=== PATIENT | male | born 1955 | race Caucasian/White ===

== ENCOUNTER 2016-12-23 08:03 | Inpatient (IN) ==
[2016-12-23] MEDS ORDERED: MORPHINE 2 MG/1 ML SYRINGE IV STA ×3 (08:11→09:01)
[2016-12-23] MEDS ORDERED: ONDANSETRON 4 MG/2 ML VIAL IV STA (08:11)
[2016-12-23] MEDS ORDERED: ASPIRIN 325 MG TABLET PO STA (08:11)
[2016-12-23] MEDS ORDERED: ALUM/MAG/SIMETH/LIDO VISC 1:1 30 ML BOTTLE PO STA (08:11)
[2016-12-23] MEDS ORDERED: NITROGLYCERIN 2% OINT 1 INCH/GM PACK TOP STA (08:11)
[2016-12-23] MEDS ORDERED: ENOXAPARIN 100 MG/ML SYRINGE SUBCUT STA (08:11)
--- NOTE | 2016-12-23 08:14 | EKG Report ---
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
[2016-12-23] MEDS ORDERED: ONDANSETRON 4 MG/2 ML VIAL ONE (08:16)
[2016-12-23] MEDS ORDERED: MORPHINE 2 MG/1 ML SYRINGE ONE ×3 (08:16→09:02)
[2016-12-23] MEDS ORDERED: ALUM/MAG/SIMETH/LIDO VISC 1:1 30 ML BOTTLE PO ONE (08:16)
[2016-12-23] MEDS ORDERED: ENOXAPARIN 80 MG/0.8 ML SYRINGE SUBCUT ONE (08:16)
[2016-12-23] MEDS ORDERED: NITROGLYCERIN 2% OINT 1 INCH/GM PACK TOP ONE (08:16)
--- NOTE | 2016-12-23 08:23 | Emergency Department Note ---
Brandon Frank Gwan, am scribing for, and in the presence of, Jomar Alonzo MD 08:19 . Cheri Frank James D, MD, personally performed the services described in this documentation, ascribed by Joanie Taylor in my presence, and it is both accurate and complete 821 . Arrival - Arrival Chief Complaint: Chest Pain ED Nursing Triage Note: c/o cp started when the pt woke up. onset about 0630. pain is in both arms and center of back. +n/v Mode of Arrival: Stretcher Limitations: No Limitations Source: Patient, Old Records Reviewed, RN Notes Reviewed Time Seen by Provider: 12/23/16 08:08 - History of Present Illness HPI Narrative: Pt is a 61 y/o male, with a hx of VT, and bypass, who presents to the ED with a c/o chest pain with an onset 0630 this morning. Patient describes his pain as sharp and noted that his pain radiates to his back. He then said that this pain is similar to the pain that he has had in the past with previous heart problems. His associated sxs have been diaphoresis and N/V. He confirmed that he is being followed by [facility] Dr. aVldez and that he is complaints with all prescribed medications. He denies any hx of DM. He confirmed that he has a SHx of 1ppd cigarette use. During exam, pt stated that he is still in pain. Pt has a PMHx of HTN, CVA and cardiac catheterization. No other problems/ complaints reported in ED. Onset (ago): hour(s) Consistency: constant Severity: moderate Allergies/Adverse Reactions: Allergies Allergy/AdvReac Type Severity Reaction Status Date / Time Shellfish Allergy Unknown/Unable Verified 12/23/16 08:09 to obtain soybean oil Allergy Unknown/Unable Uncoded 12/23/16 08:09 to obtain Home Medications: Home Medications Medication Instructions Recorded Confirmed Type Amlodipine Besylate/Benazepril 1 each PO DAILY 12/23/16 12/23/16 History [Amlodipine-Benazepril 5-20 mg] Carvedilol [Coreg] 12.5 mg PO BID 12/23/16 12/23/16 History Clopidogrel [Plavix] 75 mg PO DAILY 12/23/16 12/23/16 History Isosorbide Mononitrate [Isosorbide 30 mg PO QAM 12/23/16 12/23/16 History Mononitrate ER] Magnesium Chloride [Slow Mag] 64 mg PO DAILY 12/23/16 12/23/16 History Simvastatin 40 mg PO BEDTIME 12/23/16 12/23/16 History Review of System - Review of System 12 point system: reviewed and no additional remarkable complaints except as stated - Review of System Constitutional: Present: as per HPI, diaphoresis. Absent: fever Head/Ears/Nose/Throat: Absent: earache Respiratory: Absent: cough, wheezing Cardiovascular: Present: as per HPI, chest pain Gastrointestinal: Present: as per HPI, nausea, vomiting Genitourinary male: Absent: urgency, dysuria Musculoskeletal: Present: as per HPI, back pain. Absent: leg pain Skin: Absent: rash, lesions Neurological: Absent: headache, numbness Medical,Surgical,& Family Hx - Medical History Cardio: History of: Hypertension, VT Neurology: History of: Cerebrovascular Accident - Surgical History Cardiac Surgeries: Sugical HX of: Cardiac Catheterization (stent), Cardiac Surgery (bypass) - Social History Smoking Status: Smoker, status unknown Frequency of Alcohol Use: Occasionally Type of Drug Use: None Exam Physical Examination: GENERAL: This is a well-nourished, well-developed white male in no apparent distress. VITAL SIGNS: HEENT: Head is normocephalic and atraumatic. Pupils are equally round and reactive to light. Extraocular movement are intact. Oropharynx is benign with moist mucous membranes. NECK: Neck is soft and supple without tenderness. There are no masses. There is no lymphadenopathy. LUNGS: Lungs are clear to auscultation bilaterally. Chest rises symmetrically. There is no chest wall tenderness. CV: Heart is regular rate and rhythm without murmurs, rubs, or gallops. ABDOMEN: Abdomen is soft, non-tender to palpation. There are no abnormal masses palpated. There is no organomegaly. Bowel sounds are present and active. SKIN: Skin is warm and dry. No rash. EXTREMITIES: Patient has full range of motion without tenderness. There is no pedal edema. NEUROLOGIC: Awake, alert, and oriented x4. Cranial nerves II through XII are grossly intact. There are no motorsensory deficits. PSYCHIATRIC: Normal affect. Normal mood. Vital Signs: Vital Signs Temperature 96.8 F L 12/23/16 08:03 Pulse Rate 53 L 12/23/16 08:03 Respiratory Rate 18 12/23/16 08:10 Blood Pressure 120/79 12/23/16 08:03 O2 Sat by Pulse Oximetry 100 12/23/16 08:03 Course - Consultations Consultation #1: Discussed with cardiology. Patient will be admitted to their service. Patient will be taken to [facility] for left heart cath. Time: 10:40 Results - Labs CBC & BMP: 12/23/16 08:17 12/23/16 08:17 Lab Results: I have reviewed the patients labs Labs: Laboratory Tests 12/23/16 12/23/16 08:17 08:17 WBC 8.2 RBC 4.30 Hgb 14.6 Hct 42.7 Plt Count 208 [place] % (Auto) 13.9 H [place] # (Auto) 1.1 H INR 1.0 PT Patient/Control Mix 10.7 Circ Anticoag PTT 26.4 Laboratory Tests 12/23/16 08:17 Sodium 141 Potassium 4.3 Chloride 108 H Carbon Dioxide 28 BUN 14 Creatinine 1.00 Glucose 125 H Calcium 8.2 L Globulin 3.6 H Albumin/Globulin Ratio 0.9 L Lipase 107.0 - EKG EKG results: interpreted by ERMD - Impressions EKG: Sinus bradycardia with a rate of 55, occasional supraventricular premature complexes, nonspecific ST-T wave changes, normal axis. - Diagnostic Findings Procedure: Chest x-ray: image reviewed by me (Old median sternotomy, no infiltrates, no pleural effusions.), CT - chest: report reviewed by me ( Moderately severe emphysematous changes.) Disposition Clinical Impression: Chest pain, Coronary artery disease, Hyperlipidemia, Tobacco abuse, COPD ( chronic obstructive pulmonary disease), Abnormal EKG Case discussed with: patient Disposition: Still a Patient Condition: Guarded Time of Disposition: 10:40
[2016-12-23 08:27] LABS: Basophils % 0.5 % (0.0-0.8); Eosinophils # 0.3 10*3/uL (0.0-0.87); Eosinophils % 3.7 % (0.00-10.9); Hematocrit 42.7 VOL% (42.0-52.0); Hemoglobin 14.6 GM/DL (14.0-18.0); Immature Granulocytes % 0.2 %; Immature Granulocytes Absolute 0.02 #; Lymphocytes # 2.5 10*3/uL (1.4-4.0); Lymphocytes % 30.6 % (21.2-54.2); Mean Corpuscular HGB Conc 34.2 GM/DL (32-36); Mean Corpuscular Hemoglobin 34 PG (27-34); Mean Corpuscular Volume 99.3 FL (87-102); Mean Platelet Volume 10.3 FL (9.6-12.0); Monocytes # 1.1 10*3/uL (0.11-0.8); Monocytes % 13.9 % (1.7-12.7); Neutrophils # 4.2 10*3/uL (1.4-7.4); Neutrophils % 51.1 % (38.7-73.9); Platelet Count 208 T/CUMM (130-400); White Blood Count 8.2 T/CUMM (4-12)
--- NOTE | 2016-12-23 08:33 | XRay Report ---
XR chest 1V portable Indication: Chest pain. Comparison: Chest x-ray 03/22/2013 Technique: Portable AP chest was performed. Findings: Heart size appears within normal limits. Previous sternotomy is demonstrated. Lungs are clear for degree of inspiration. There may be minimal atelectatic change within the lung bases. Hilar structures are stable when compared to prior. Upper lungs are clear. Bones and soft tissues demonstrate no evidence of acute pathology. Impression: 1. No specific evidence of acute pathology. 12/23/2016 8:29 AM PROCEDURE INTERPRETED AT [facility] DEPARTMENT OF RADIOLOGY Final Report Signed by: Dr. Ralph Hanks
[2016-12-23 08:36] LABS: PT Patient Result 10.7 SECS; Partial Thromboplastin Time 26.4 SECS (0-40)
[2016-12-23 09:09] LABS: Albumin 3.5 G/DL (3.4-5.0); Bilirubin,Total 0.7 MG/DL (0.2-1.0); Calcium 8.2 MG/DL (8.5-10.1); Osmolality,Calculated 282.3 MOS/KG (273-304); Potassium 4.3 MMOL/L (3.5-5.1); Total Protein 7.1 G/DL (6.4-8.3)
[2016-12-23] MEDS ORDERED: HYDROmorphone 2 MG/1 ML VIAL ONE ×2 (09:21→11:20)
[2016-12-23] MEDS ORDERED: HYDROmorphone 2 MG/1 ML VIAL IV STA ×2 (09:24→11:19)
[2016-12-23] MEDS ORDERED: methylPREDNISolone SOD SUC 125 MG/2 ML VIAL ONE (09:58)
[2016-12-23] MEDS ORDERED: diphenhydrAMINE 50 MG/1 ML VIAL ONE (09:58)
[2016-12-23] MEDS ORDERED: methylPREDNISolone SOD SUC 125 MG/2 ML VIAL IV STA (10:03)
[2016-12-23] MEDS ORDERED: diphenhydrAMINE 50 MG/1 ML VIAL IV STA (10:03)
--- NOTE | 2016-12-23 10:29 | CT Report ---
CT chest w con Indication: Chest pain Comparison: None. Technique: CT of the chest was performed following the administration of intravenous contrast. The CT examination was performed using one or more of the following dose reduction techniques: Automatic exposure control, adjustment of the mA and kV according to patient size, or iterative reconstruction techniques. Findings: Prior sternotomy is demonstrated. The heart size is minimally enlarged with four-chamber enlargement suggested. Coronary artery calcifications and/or stents are present. Aorta demonstrates no significant abnormality. Borderline to minimally enlarged right hilar lymph nodes are present measuring up to 10-11 mm in short axis dimension. Borderline left hilar lymph nodes additionally present. AP window lymph nodes measure up to 11 mm in short axis dimension. No axillary adenopathy is present. The esophagus demonstrates no significant abnormality. Severe paraseptal emphysematous changes and centrilobular emphysematous changes are present bilaterally. These appear most prevalent within the upper lobes. Small pulmonary nodule blurred by motion exists within the right upper lobe image #49. This measures approximately 3 mm. Small focus of scarring or atelectasis is suggested along the anterior margin of the right middle lobe image #75. Dependent atelectasis is present within the right lower lobe. Dependent atelectasis is noted within the left lower lobe. Additionally, bilaterally within the lower lobes, prominent dependent venous structures are noted suggesting pulmonary venous congestive changes. No pleural effusions are present. No endobronchial lesions are demonstrated. With exception of sternal wires, bony structures demonstrate no significant abnormalities. Soft tissues and musculature of the chest wall as well as the visualized portion of the upper abdomen demonstrate no acute findings. Punctate calcifications present within the spleen suggest previous granulomatous disease. Impression: 1. Moderately severe bilateral centrilobular and paraseptal emphysematous changes demonstrated as detailed. Pulmonary nodule within the right upper lobe is present as detailed. 2. Dependent pulmonary venous structures appear engorged suggesting component of pulmonary venous congestive change. 3. No evidence of pulmonary artery and bolus. 4. Previous sternotomy and coronary artery calcifications are present as detailed. 5. Borderline to minimally enlarged bilateral hilar lymph nodes are of uncertain clinical significance. Additional borderline mediastinal nodes present as detailed. Differential considerations are broad. 12/23/2016 10:19 AM PROCEDURE INTERPRETED AT [facility] DEPARTMENT OF RADIOLOGY Final Report Signed by: Dr. Ralph Hanks
--- NOTE | 2016-12-23 11:06 | EKG Report ---
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
[2016-12-23] MEDS ORDERED: DIAZEPAM 5 MG TABLET PO ONE (11:18)
[2016-12-23] MEDS ORDERED: diphenhydrAMINE CAP 25 MG CAPSULE PO ONE (11:18)
[2016-12-23] MEDS ORDERED: MAGNESIUM SULF RIDER 2 GM in PREMIX 1 EACH IV PRN ×2 (11:18→13:21)
[2016-12-23] MEDS ORDERED: POTASSIUM CHLORIDE RIDER 10 MEQ in PREMIX 1 EACH IV PRN (11:18)
--- NOTE | 2016-12-23 11:29 | Cardiology History & Physical ---
Assessment and Plan - Time spent with patient Time spent with patient: Greater than 30 minutes Time spent discussing smoking cessation with patient: 3 to 10 minutes (1) Status post aorto-coronary artery bypass graft Status: Chronic Assessment and plan: See plan of care listed below Current Visit: Yes (2) Abnormal EKG Status: Acute Assessment and plan: See plan of care listed below Current Visit: Yes (3) COPD (chronic obstructive pulmonary disease) Status: Chronic Assessment and plan: See plan of care listed below Current Visit: Yes (4) Chest pain Status: Acute Assessment and plan: See plan of care listed below Current Visit: Yes (5) Coronary artery disease Status: Chronic Assessment and plan: See plan of care listed below Current Visit: Yes (6) Hyperlipidemia Status: Chronic Assessment and plan: See plan of care listed below Current Visit: Yes (7) Tobacco abuse Status: Chronic Assessment and plan: See plan of care listed below Current Visit: Yes History of Present Illness Chief complaint: Chest pain, known coronary artery disease History of present illness: ASSISTANT ANALYST: DR. VALDEZ PCP: DR. FORD Patient is being seen in the emergency department Mr. Kothari is a 61 year old male previously followed by Dr. Valdez. He has not followed up with Dr. Valdez in a few years. Risk factors include: Known coronary artery disease (status post CABG twice), CVA, hypertension, dyslipidemia, tobaccoism. Also a history of DVT in 1999, COPD. Last cardiac catheterization March 23, 2013: #1 severe diffuse three-vessel coronary artery disease described in report #2 3 of 4 bypass grafts are patent as described above. The only significant change in his coronary anatomy is a new lesion just distal to the touchdown of the saphenous vein graft to the diagonal branch. #3 preserved left ventricular ejection fraction #4 successful Angio-Seal closure of the right femoral artery with normal right iliac femoral arterial system. Patient presented to the emergency department at [facility] this morning after experiencing chest pain in 0630 this morning. He describes the discomfort as "the worst pain I have ever had." Is located in the center of his chest and radiates through to his right shoulder blade. He can identify no aggravating factors nor any alleviating factors. Initially, it was associated with nausea and diaphoresis but this is resolved. He rates the discomfort as a 9 on a scale of 1-10. He has undergone CTA of chest which reveals no acute abnormality. Cardiac biomarkers are negative, second EKG reveals some ST depression. He has received aspirin, Lovenox, beta blockade, nitrates and lipid-lowering agent. He has also received 10 mg of morphine and Dilaudid 2 mg IV. Patient does have an IVP dye allergy to include hypertensive urgency and rash. He has received 200 mg Solu-Medrol IV and Benadryl 50 mg prior to CTA. Dr. Hernadez has seen and evaluated this patient and has recommended cardiac catheterization. He is being prepared for heart catheterization at this time. Patient tells me he has not been taking Ranexa due to cost and was given a prescription for isosorbide mononitrate. The latter gave him a headache and therefore he has not been taking recently. Patient smokes greater than 1 pack of cigarettes per day for the past 40 years. He also drinks alcohol daily and tells me he usually drinks 4+ beers daily. He did drink last evening. ASSESSMENT/PLAN: 1. ANGINA -being prepared for cardiac catheterization 2. KNOWN CAD S/P CABG TWICE -being prepared for cardiac catheterization 3. HYPERTENSION -will adjust medications accordingly during hospital stay 4. DYSLIPIDEMIA -continue lipid-lowering agent. Fasting lipid profile in the morning 5. TOBACCOISM -merits of tobacco cessation was discussed for greater than 5 minutes today 6. IVP DYE ALLERGY -has been given preop meds accordingly. 7. Home Medications Medication Instructions Recorded Confirmed Type Amlodipine Besylate/Benazepril 1 each PO DAILY 12/23/16 12/23/16 History [Amlodipine-Benazepril 5-20 mg] Carvedilol [Coreg] 12.5 mg PO BID 12/23/16 12/23/16 History Clopidogrel [Plavix] 75 mg PO DAILY 12/23/16 12/23/16 History Isosorbide Mononitrate [Isosorbide 30 mg PO QAM 12/23/16 12/23/16 History Mononitrate ER] Magnesium Chloride [Slow Mag] 64 mg PO DAILY 12/23/16 12/23/16 History Simvastatin 40 mg PO BEDTIME 12/23/16 12/23/16 History Allergies Allergy/AdvReac Type Severity Reaction Status Date / Time Shellfish Allergy Unknown/Unable Verified 12/23/16 08:09 to obtain soybean oil Allergy Unknown/Unable Uncoded 12/23/16 08:09 to obtain Review of systems: REVIEW OF SYSTEMS: - Constitutional Constitutional: Present: Fatigue. Absent: syncope, anorexia, night sweats - EENT Eyes: Absent: blurry vision, loss of vision, diplopia Ears: Absent: decreased hearing, ear pain, ear discharge - Cardiovascular Cardiovascular: Present: See HPI. Denies edema, palpitations. Absent: chest pain with deep breath, claudication - Respiratory Respiratory: Present: Chronic mild dyspnea on exertion. Denies cough. Absent: wheezing, hemoptysis, change in phlegm color - Gastrointestinal Gastrointestinal: Denies constipation, recent nausea with the chest pain.. Absent: abdominal pain, hematemesis, hematochezia, melena, change in bowel habits - Genitourinary Genitourinary: Absent: difficulty urinating, dysuria, urinary hesitancy, flank pain - Musculoskeletal Musculoskeletal: Present: back pain Absent: joint swelling, muscle cramps, muscle weakness - Neurological Neurological: Present: normal gait without frequent falls. Absent: dizziness, hemiparesis - Psychiatric Psychiatric: Absent: anxiety, depression, difficulty concentrating - Endocrine Endocrine: Present: fatigue. Absent: cold intolerance, heat intolerance, polyuria, polyphagia, polydipsia - Hematologic/Lymphatic Hematologic/Lymphatic: Present: easy bruising. Absent: easy bleeding -Integumentary Integumentary: Absent: lesions, rashes, skin breakdown Medical,Surgical,& Family Hx - Medical History Cardio: History of: CAD, Hypertension, [place] Neurology: History of: Cerebrovascular Accident Endocrine: History of: Dyslipidemia No history of: Diabetes Mellitus (NIDDM) Musculoskeletal: History of: Back/Neck Problems Hematology: No history of: Anemia - Surgical History Cardiac Surgeries: Sugical HX of: Cardiac Catheterization (stent), Cardiac Surgery (bypass) - Social History Smoking Status: Current every day smoker Have you smoked in the last 12 months: Yes Time spent discussing smoking cessation with patient: 3 to 10 minutes Frequency of Alcohol Use: Occasionally Type of Drug Use: None Functional capacity: independent ambulation Cardiology Physical Exam - Constitutional Vitals: Vital Signs Temp Pulse Resp BP Pulse Ox 96.8 F L 53 L 18 120/79 100 12/23/16 08:03 12/23/16 08:03 12/23/16 08:10 12/23/16 08:03 12/23/16 08:03 Intake and Output 12/22/16 12/23/16 12/23/16 23:59 07:59 15:59 Other: Weight 79.379 kg Patient Weight 12/23/16 23:59 Weight 79.379 kg Exam: General: [Appears well with no apparent distress.] [Pleasant and cooperative. ] [Appears comfortable.] HEENT: [PERRL, normocephalic, atraumatic. Mucous membranes moist. No jaundice noted. Conjunctiva moist and clear, sclerae anicteric] Neck: No JVD/HJR, no thyromegaly or lymphadenopathy noted. Right carotid bruit appreciated Cardiac: [Regular rate and rhythm.] [No obvious murmur, rub or gallop.] Lungs: [Clear to auscultation without accessory muscle use to assist the respiratory pattern.] Oxygen in use via nasal cannula Abdomen: Soft, bowel sounds normoactive. Nontender and nondistended. No abdominal bruit or thrill noted. No masses noted. Musculoskeletal: No fluid collection. Decreased range of motion is noted. Extremities: No clubbing, cyanosis noted. [ No edema noted.] Upper extremity pulses 2+. Lower extremity pulses 2+. Capillary refill less than 3 seconds. Skin: No unusual lesions or rashes. No skin breakdown appreciated. Neuro: Awake, alert and oriented 3. Moves all extremities well without hemiparesis or paralysis. No essential tremor is appreciated. Result/EKG - Labs CBC & BMP: 12/23/16 08:17 12/23/16 08:17 Lab Results: I have reviewed the past 24 hour labs Labs: Laboratory Results - last 24 hr 12/23/16 12/23/16 12/23/16 08:17 08:17 08:17 WBC 8.2 RBC 4.30 Hgb 14.6 Hct 42.7 MCV 99.3 MCH 34 MCHC 34.2 RDW 13.0 Plt Count 208 MPV 10.3 Neut % (Auto) 51.1 Lymph % (Auto) 30.6 [place] % (Auto) 13.9 H Eos % (Auto) 3.7 Baso % (Auto) 0.5 Neut # (Auto) 4.2 Lymph # (Auto) 2.5 [place] # (Auto) 1.1 H Eos # (Auto) 0.3 Baso # (Auto) 0.0 Immature Gran % 0.2 Nucleated RBC % 0.0 Immature Gran # 0.02 Nucleated RBCs # 0.00 INR 1.0 PT Patient/Control Mix 10.7 Circ Anticoag PTT 26.4 Sodium 141 Potassium 4.3 Chloride 108 H Carbon Dioxide 28 Anion Gap 9.3 BUN 14 Creatinine 1.00 GFR Calculation 91 BUN/Creatinine Ratio 14.00 Glucose 125 H Calculated Osmolality 282.3 Calcium 8.2 L Total Bilirubin 0.70 AST 16 ALT 19 Alkaline Phosphatase 65 Troponin I Total Protein 7.1 Albumin 3.5 Globulin 3.6 H Albumin/Globulin Ratio 0.9 L Lipase 107.0 12/23/16 08:17 WBC RBC Hgb Hct MCV MCH MCHC RDW Plt Count MPV Neut % (Auto) Lymph % (Auto) [place] % (Auto) Eos % (Auto) Baso % (Auto) Neut # (Auto) Lymph # (Auto) [place] # (Auto) Eos # (Auto) Baso # (Auto) Immature Gran % Nucleated RBC % Immature Gran # Nucleated RBCs # INR PT Patient/Control Mix Circ Anticoag PTT Sodium Potassium Chloride Carbon Dioxide Anion Gap BUN Creatinine GFR Calculation BUN/Creatinine Ratio Glucose Calculated Osmolality Calcium Total Bilirubin AST ALT Alkaline Phosphatase Troponin I < 0.015 Total Protein Albumin Globulin Albumin/Globulin Ratio Lipase - Diagnostic Findings Procedure: Chest x-ray: report reviewed by me, CT - chest: report reviewed by me - EKG EKG results: interpreted by me EKG shows: sinus rhythm
[2016-12-23] MEDS ORDERED: DIAZEPAM 5 MG TABLET ONE ×2 (11:33→11:37)
[2016-12-23] MEDS: SODIUM CHLORIDE 0.9% 1,000 ML IV SCH ×2 (11:44→17:07)
--- NOTE | 2016-12-23 11:47 | History and Physical Update ---
Sedation H&P Update - History and Physical H&P was reviewed, the patient examined and there: are no changes in the patients condition since last H&P was completed. - Dictation Physical: refer to H&P completed by admitting physician - Physical Exam Mental Status: alert and oriented Heart: regular rate and rhythm Lung: clear to auscultation Abdomen: within normal limits Vitals: within normal limits - Sedation Plan for Sedation: minimal Patient Consent: Procedure disscussed with patient and patinet has consented., Risks and benefits were discussed with patient,including infection,, bleeding, injury to surrounding structures, seizure, temporary nerve, Patient understands and accepts potential risks/benefits and agrees to, proceed. ASA Class: III Airway Assessment: Class II: Soft palate, uvula, fauces visible
[2016-12-23] MEDS ORDERED: LIDOCAINE 1% 20 ML VIAL ONE (11:51)
[2016-12-23] MEDS ORDERED: MIDAZOLAM 2 MG/2 ML VIAL ONE (11:52)
[2016-12-23] MEDS ORDERED: MEPERIDINE 25 MG/1 ML VIAL ONE (11:52)
[2016-12-23] MEDS ORDERED: TIROFIBAN 5,000 MCG/100 ML PREMIX IV ONE (12:29)
[2016-12-23] MEDS ORDERED: HEPARIN 5,000 UNIT/1 ML VIAL ONE (12:35)
[2016-12-23] MEDS ORDERED: TICAGRELOR 90 MG TABLET ONE (13:13)
[2016-12-23] MEDS ORDERED: LACTULOSE 20 GM/30 ML UDCUP PO PRN (13:21)
[2016-12-23] MEDS ORDERED: ZALEPLON 5 MG CAPSULE PO PRN (13:21)
[2016-12-23] MEDS ORDERED: ACETAMINOPHEN 325 MG TABLET PO PRN (13:21)
[2016-12-23] MEDS ORDERED: MAGNESIUM SULF RIDER 4 GM in PREMIX 1 EACH IV PRN (13:21)
--- NOTE | 2016-12-23 13:38 | Operative Note ---
Date of procedure: 12/23/16 Procedure Preformed: Left heart cath Coronary angiography Left ventriculography Supravalvular aortography Vein graft injection-4 different vein grafts Angiogram of the right femoral artery Stent of left circumflex mid vessel, PTCA of the distal circumflex Loading with Brilinta, 180 mg p.o. Angio-Seal of the right femoral artery-successful Surgeon / Physician: Qasim Hernadez Weight Control Engineer: Danyelle Chiang Post-op diagnosis: same (Prolonged chest pain, with EKG changes, non-STEMI, known coronary disease) Findings: Impression: Significant three-vessel coronary disease Occluded vein graft to the obtuse marginal--old Patent vein graft to the LAD-with some moderate disease in the midportion of the graft Patent vein graft to the right coronary Occluded vein graft to the diagonal-its midportion, this seemed acutely occluded , may be the cause of the infarct/severe chest pain Mildly ectatic aortic root without significant regurgitant regurgitation. One vein graft was noted to emanate from the aorta. Normal global/regional LV systolic function, LVEF 50-55% Low LVEDP, less than 4 mmHg Aggrastat bolus and infusion-for PCI Status post successful stenting and PTCA of the mid circumflex and distal circumflex, respectively Angiogram right femoral artery Angio-Seal right femoral artery Mild catheterization plan Plan/recommendations: The patient will have risk factors optimized. I will discuss with patient again about importance of stopping smoking. The patient will be on antiplatelet medications to include aspirin indefinitely and Plavix or Brilinta for at least a year. He will be on a beta-octaviano if he is not already on it. Follow-up will be scheduled. Addenda: I saw the patient post-cath. the groin puncture site and distal pulse are stable. vital signs are stable and the patient will be observed closely overnight. Specimens: none sent Estimated blood loss: minimal Condition: other (guarded) Anesthesia: local, conscious sedation Disposition: ICU
--- NOTE | 2016-12-23 13:42 | Cardiology Operative Report ---
Date of Procedure:: 12/23/16 Post-op diagnosis: same (Prolonged chest pain, with EKG changes, non-STEMI, known coronary disease) Procedure: Date of procedure: 12/23/16 Procedure Preformed: Left heart cath Coronary angiography Left ventriculography Supravalvular aortography Vein graft injection-4 different vein grafts Angiogram of the right femoral artery Stent of left circumflex mid vessel, PTCA of the distal circumflex Loading with Brilinta, 180 mg p.o. Angio-Seal of the right femoral artery-successful Surgeon / Physician: Qasim Hernadez Writing Manager: Danyelle Chiang Post-op diagnosis: same (Prolonged chest pain, with EKG changes, non-STEMI, known coronary disease) procedure: The patient was prepped and draped in usual manner. Entered the right femoral artery via the Seldinger technique. I used a sheath and then used a an angled pigtail. Across the aortic valve. Left ventricular was done. Pullback. I did a supravalvar aortography then. I then removed the catheter and used a JL4 and engaged left coronary. Multiple views were taken. I then exchanged for a JR4. I engage the right coronary artery. Multiple views of the right coronary were taken. I then used a JR4 to engage the vein graft to the diagonal, vein graft to LAD, vein graft to obtuse marginal, and the vein graft to the right coronary. Multiple views were taken of each of these grafts. I then proceed with intervention as described below. Following intervention, the catheters were then removed from the patient. Angiogram was done of the right femoral artery. Angio-Seal was done. It was successful. Please see the data sheets for the details of catheters used. Intervention: Cardiovascular surgery was available for any complications. The coronary intervention was done using a JL4 guiding catheter, 0.014 run through wire,. I used a 2.0 x 20 mm NC trek to dilate the more distal to lesions. There were not large enough to receive a stent. Dilating these vessels, then pulled the balloon back to the mid circumflex lesion. It was predilated. After predilatation, then placed a 2.75 x 12 mm [facility] coronary stent across the lesion. It was deployed. Afterwards, There was a good result.. Angiogram of the right femoral artery was done, at that time Angio-Seal was to be done.. Angio-Seal was done. Patient was transferred to his room in the CCU in satisfactory condition. Please see the cath report for details of the pressures and times. Complications: none Hemodynamic data: LVEDP was >4 mmHg. Angiographic data: Supravalvular tonic supravalvar aortography revealed no significant aortic regurgitation. There is mildly dilated dilated aortic root. Vein graft to the diagonal was totally occluded. There appear to be a large amount of thrombus within it. It is occluded in the mid extent. Vein graft to the circumflex was occluded. It is a nub . The vein graft to the LAD was a large conduit. Origin insertion site were normal. The midportion had an irregular area but it is thought not to be critically stenosed, may be 40-50 % narrowing, and a large vessel. The vein graft to right coronary was large conduit. Origin, the body, and the insertion site was without significant disease. it filled a large right coronary artery. The left main coronary was large and had minimal luminal irregularities. The left anterior descending artery was large. There is one major diagonal. It was totally occluded proximally. It filled via the vein graft to this vessel. Otherwise, there are minimal luminal irregularities. The left circumflex system was moderate to large. It was 1 major obtuse marginal . There was a mid vessel 80% narrowing. The distal portion vessel there were tandem 95% narrowings. Otherwise there are minimal luminal irregularities in the circumflex The right coronary artery was large in size, dominant vessel with the PDA. There was a moderate sized post lateral branch. This vessel was totally occluded in its mid portion. He mainly filled via the graft to the right coronary artery. Otherwise there were minimal luminal irregularities. SUAREZ left ventriculography revealed normal global/regional left ventricular systolic function. Overall ejection fraction was at least 50- 55%. There is no significant mitral regurgitation. After intervention of the circumflex,, the mid vessel stent the lesion is 0% residual. There is GRAY grade III flow. The 2 more distal lesions had a less than 20% narrowing and GRAY grade III flow. At appeared to be a stepdown. . Angiogram of the right femoral artery revealed the puncture site to be in a large vessel, above the bifurcation. It was suitable for Angio-Seal. Impression: Significant three-vessel coronary disease Occluded vein graft to the obtuse marginal--old Patent vein graft to the LAD-with some moderate disease in the midportion of the graft Patent vein graft to the right coronary Occluded vein graft to the diagonal-its midportion, this seemed acutely occluded , may be the cause of the infarct/severe chest pain Mildly ectatic aortic root without significant regurgitant regurgitation. One vein graft was noted to emanate from the aorta. Normal global/regional LV systolic function, LVEF 50-55% Low LVEDP, less than 4 mmHg Aggrastat bolus and infusion-for PCI Status post successful stenting and PTCA of the mid circumflex and distal circumflex, respectively Angiogram right femoral artery Angio-Seal right femoral artery Mild catheterization plan Plan/recommendations: The patient will have risk factors optimized. I will discuss with patient again about importance of stopping smoking. The patient will be on antiplatelet medications to include aspirin indefinitely and Plavix or Brilinta for at least a year. He will be on a beta-octaviano . It is likely that his chest pain was likely due to the acute occlusion of the graft to the diagonal. However that is not something I could intervene upon is that appear to be a significant amount of clot burdon and I could not see the lesion where it was occluded. Also the vessel, by prior angiogram, was relatively small . Thus, I intervened upon what I could. there was a Critical stenosis of the circumflex which I reviewed upon. He be treated medically for his occluded diagonal. He will be followed. Follow-up will be scheduled. Addenda: I saw the patient post-cath. the groin puncture site and distal pulse are stable. vital signs are stable and the patient will be observed closely overnight. Specimens: none sent Estimated blood loss: minimal Condition: other (guarded) Anesthesia: local, conscious sedation Disposition: ICU Additional CC's: Haseeb Valdez Anesthesia: local Surgeon / Physician: Qasim Hernadez Writing Manager: other Estimated blood loss: minimal Specimens: none sent Condition: other (guarded) Disposition: ICU/CCU
[2016-12-23] MEDS ORDERED: TIROFIBAN 5,000 MCG/100 ML PREMIX IV SCH (14:00)
[2016-12-23] MEDS: SODIUM CHLORIDE 0.45% 1,000 ML IV SCH ×2 (14:26→19:34)
[2016-12-23] MEDS: CAPTOPRIL 6.25 MG TABLET PO SCH ×3 (14:31→20:12)
[2016-12-23] MEDS: PANTOPRAZOLE 40 MG TABLET PO SCH (14:31)
[2016-12-23] MEDS: CARVEDILOL 12.5 MG TABLET PO SCH ×2 (14:31→20:12)
[2016-12-23 14:56] LABS: CKMB % 14.9 %; Troponin I Only 0.504 NG/ML (0.00-0.045)
--- NOTE | 2016-12-23 15:18 | EKG Report ---
Stationary ECG Study 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
--- NOTE | 2016-12-23 16:02 | Ultrasound Report ---
History: Right carotid bruit Date: 12/23/2016 Study: Carotid duplex ultrasound Comparison exam: June 25, 2016 Color Doppler, wave form analysis, and grayscale analysis of the cervical carotid arteries was performed. There is partially calcified plaque in either carotid bulb, mild on the right and moderate left. Waveform analysis shows proper directional flow of the cervical carotid arteries. There is antegrade flow in either vertebral artery. The distal right ICA measures 5.5 mm diameter; the left measures 5.2 mm diameter. Peak systolic velocities are as follows: Right CCA 53 cm/s Right ICA 69 cm/s Right ECA 110 cm/s Right vertebral 38 cm/s Right IC/CC ratio 1.3 Left CCA 71 cm/s Left ICA 68 cm/s Left ECA 95 cm/s Left vertebral 29 cm/s Left IC/CC ratio 1.0 There is 0 15% diameter reduction narrowing of either internal carotid artery using indirect NASCET criteria. Ultrasound images were captured and archived. Impression: No hemodynamically significant internal carotid artery stenosis PROCEDURE INTERPRETED AT [facility] DEPARTMENT OF RADIOLOGY Final Report Signed by: Dr. Nelia Ball
[2016-12-23] MEDS: NITROGLYCERIN SL 0.4 MG TABLET SL PRN ×3 (19:32→19:42)
[2016-12-23] MEDS ORDERED: MORPHINE 2 MG/1 ML SYRINGE IV ONE (20:04)
[2016-12-23] MEDS: TICAGRELOR 90 MG TABLET PO SCH (20:12)
[2016-12-23] MEDS ORDERED: CARVEDILOL 12.5 MG TABLET PO SCH (21:00)
[2016-12-23] MEDS ORDERED: SIMVASTATIN 40 MG TABLET PO SCH (21:00)
[2016-12-23 22:43] LABS: CKMB % 23.4 %
[2016-12-23 22:49] LABS: Troponin I Only 5.36 NG/ML (0.00-0.045)
[2016-12-23] MEDS ORDERED: MORPHINE 2 MG/1 ML SYRINGE IV PRN (23:03)
[2016-12-24] MEDS: CARVEDILOL 12.5 MG TABLET PO SCH ×4 (02:12→21:50)
[2016-12-24] MEDS: SODIUM CHLORIDE 0.45% 1,000 ML IV SCH (03:51)
[2016-12-24 05:34] LABS: Basophils % 0.1 % (0.0-0.8); Hematocrit 43.8 VOL% (42.0-52.0); Hemoglobin 15.3 GM/DL (14.0-18.0); Immature Granulocytes % 0.3 %; Immature Granulocytes Absolute 0.03 #; Mean Corpuscular HGB Conc 34.9 GM/DL (32-36); Mean Corpuscular Hemoglobin 34 PG (27-34); Mean Corpuscular Volume 96.1 FL (87-102); Mean Platelet Volume 10.8 FL (9.6-12.0); Monocytes # 0.6 10*3/uL (0.11-0.8); Monocytes % 5.5 % (1.7-12.7); Neutrophils # 9.5 10*3/uL (1.4-7.4); Neutrophils % 85.1 % (38.7-73.9); Platelet Count 200 T/CUMM (130-400); Red Blood Count 4.56 MC/CUMM (3.8-5.5); White Blood Count 11.1 T/CUMM (4-12)
[2016-12-24 06:06] LABS: Calcium 8.3 MG/DL (8.5-10.1); Magnesium 2.2 MG/DL (1.8-2.4); Osmolality,Calculated 280.4 MOS/KG (273-304); Potassium 4.1 MMOL/L (3.5-5.1)
[2016-12-24 06:11] LABS: CKMB % 24.9 %
[2016-12-24 06:14] LABS: Troponin I Only 9.74 NG/ML (0.00-0.045)
--- NOTE | 2016-12-24 07:50 | EKG Report ---
Stationary ECG Study [facility] Test Date: 12/23/2016 7:55:01 PM Pat Name: ALOK JADE Department: Room: 119 Gender: M Detention Deputy: : 1955 Requested by: Qasim Hernadez Order Number: [id number] Reading MD: LORETTA GARCIA Intervals [place] Rate: 76 P: 66 TX: 134 QRS: 24 QRSD: 109 T: 90 QT: 390 QTc: 420 Interpretive Statements SINUS RHYTHM WITH ECTOPIC PREMATURE ATRIAL COMPLEXES POSSIBLE LEFT ATRIAL ENLARGEMENT INCOMPLETE RIGHT BUNDLE BRANCH BLOCK Electronically Signed On 12-26-16 10:36:28 CDT by LORETTA GARCIA [email or web address]
--- NOTE | 2016-12-24 08:21 | EKG Report ---
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
--- NOTE | 2016-12-24 09:29 | Cardiology Progress Note ---
Assessment and Plan - Time spent with patient Time spent with patient: Greater than 30 minutes Time spent discussing smoking cessation with patient: 3 to 10 minutes (1) Status post aorto-coronary artery bypass graft Status: Chronic Assessment and plan: See plan of care listed below Current Visit: Yes (2) Abnormal EKG Status: Acute Assessment and plan: See plan of care listed below Current Visit: Yes (3) COPD (chronic obstructive pulmonary disease) Status: Chronic Assessment and plan: See plan of care listed below Current Visit: Yes (4) Chest pain Status: Resolved Assessment and plan: See plan of care listed below Current Visit: Yes (5) Coronary artery disease Status: Chronic Assessment and plan: See plan of care listed below Current Visit: Yes (6) Hyperlipidemia Status: Chronic Assessment and plan: See plan of care listed below Current Visit: Yes (7) Tobacco abuse Status: Chronic Assessment and plan: See plan of care listed below Current Visit: Yes (8) NSTEMI (non-ST elevated myocardial infarction) Status: Acute Assessment and plan: Continue current plan of care Current Visit: Yes (9) Right carotid bruit Status: Chronic Assessment and plan: Continue current plan of care Current Visit: Yes Cardiology - PN: Subj Interval history: AQUATIC HABITAT BIOLOGIST: DR. VALDEZ PCP: DR. FORD SUMMARY: Mr. Kothari is a 61 year old male previously followed by Dr. Valdez. Risk factors include: Known coronary artery disease (status post CABG twice), CVA, hypertension, dyslipidemia, tobaccoism. Also a history of DVT in 1999, COPD. Patient presented to the emergency department December 23, 2016 with complaints of chest pain radiating through to his right shoulder blade. Initial troponin was negative with a stable EKG. Because patient could not get pain free, he was taken to the cardiac catheterization lab urgently where Dr. Hernadez performed LHC with the following noted: Impression: Significant three-vessel coronary disease Occluded vein graft to the obtuse marginal--old Patent vein graft to the LAD-with some moderate disease in the midportion of the graft Patent vein graft to the right coronary Occluded vein graft to the diagonal-its midportion, this seemed acutely occluded , may be the cause of the infarct/severe chest pain Mildly ectatic aortic root without significant regurgitant regurgitation. One vein graft was noted to emanate from the aorta. Normal global/regional LV systolic function, LVEF 50-55% Low LVEDP, less than 4 mmHg Aggrastat bolus and infusion-for PCI Status post successful stenting and PTCA of the mid circumflex and distal circumflex, respectively Angiogram right femoral artery Angio-Seal right femoral artery Plan/recommendations: The patient will have risk factors optimized. I will discuss with patient again about importance of stopping smoking. The patient will be on antiplatelet medications to include aspirin indefinitely and Plavix or Brilinta for at least a year. He will be on a beta-octaviano if he is not already on it. Follow-up will be scheduled. DECEMBER 24, 2016: Patient tolerated the procedure well and without complication. Chest pain has resolved though he does have mild right upper back discomfort much improved from yesterday. His troponin is elevated and we are continuing to follow as this is expected. EKG this morning looks much better than prior to heart cath. Creatinine is stable this morning. Continue aspirin and Brilinta, captopril, lipid-lowering agent. Blood pressure will allow, will introduce low-dose beta-octaviano. He is tolerating isosorbide mononitrate. In the past, this is causing significant headache but he seems to be tolerating this okay. Also, I will add Ranexa. He was given a prescription for this several years ago but did not have insurance that would cover it at the time. He had no adverse reactions while taking and I will restart that today. Echocardiogram has been ordered. Carotid ultrasound reveals no significant evidence of stenosis. Transfer to telemetry, continue to monitor overnight, ambulate and possibly discharged Friday or . ASSESSMENT/PLAN: 1. ANGINA -has been revascularized 2. KNOWN CAD S/P CABG TWICE -now status post successful PTCA and stenting of the mid circumflex and distal circumflex 3. HYPERTENSION -on an MACIEL inhibitor. Will attempt to incorporate a beta- octaviano when able. 4. DYSLIPIDEMIA - continue lipid-lowering agent. Fasting lipid profile in the morning 5. TOBACCOISM - merits of tobacco cessation was discussed for greater than 5 minutes today 6. IVP DYE ALLERGY -no adverse reaction has been noted 7. NSTEMI -continue current plan of care. 8. RIGHT CAROTID BRUIT - benign per US Exam (Progress Note) - Constitutional Vitals: Period Temp Pulse Resp BP Sys/Paulino Pulse Ox Last 24 Hr 97.1 F-98.1 F 66-88 8-22 107-158/62-103 89-97 Exam: General: [Appears well with no apparent distress.] [Pleasant and cooperative. ] [Appears comfortable.] HEENT: [PERRL, normocephalic, atraumatic. Mucous membranes moist. No jaundice noted. Conjunctiva moist and clear, sclerae anicteric] Neck: No JVD/HJR, no thyromegaly or lymphadenopathy noted. Right carotid bruit appreciated. Cardiac: [Regular rate and rhythm.] [No murmur rub or gallop.] Lungs: [Clear to auscultation without accessory muscle use to assist the respiratory pattern.] Oxygen in use via nasal cannula Abdomen: Soft, bowel sounds normoactive. Nontender and nondistended. No abdominal bruit or thrill noted. No masses noted. Musculoskeletal: No fluid collection. Decreased range of motion is noted. Extremities: Right groin soft, free of hematoma or bruit. Mild ecchymosis noted. No clubbing, cyanosis noted. [ No edema noted.] Upper extremity pulses 2+. Lower extremity pulses 1+. Capillary refill less than 3 seconds. Skin: No unusual lesions or rashes. No skin breakdown appreciated. Neuro: Awake, alert and oriented 3. Moves all extremities well without hemiparesis or paralysis. No essential tremor is appreciated. Result/EKG - Labs CBC & BMP: 12/24/16 05:28 12/24/16 05:29 Labs: Laboratory Results - last 24 hr 12/23/16 12/23/16 12/24/16 22:07 Unknown 05:28 WBC RBC Hgb Hct MCV MCH MCHC RDW Plt Count MPV Neut % (Auto) Lymph % (Auto) Towns % (Auto) Eos % (Auto) Baso % (Auto) Neut # (Auto) Lymph # (Auto) Towns # (Auto) Eos # (Auto) Baso # (Auto) Immature Gran % Nucleated RBC % Immature Gran # Nucleated RBCs # Sodium Potassium Chloride Carbon Dioxide Anion Gap BUN Creatinine GFR Calculation BUN/Creatinine Ratio Glucose Calculated Osmolality Calcium Magnesium Total Creatine Kinase 525 H 88 D 653 H D CK-MB (CK-2) 122.6 H 13.1 H D 162.3 H D CK and CKMB Interp 23.4 14.9 24.9 Troponin I 5.360 H D 0.504 H D 9.740 H D 12/24/16 12/24/16 05:28 05:29 WBC 11.1 D RBC 4.56 Hgb 15.3 Hct 43.8 MCV 96.1 MCH 34 MCHC 34.9 RDW 13.0 Plt Count 200 MPV 10.8 Neut % (Auto) 85.1 H Lymph % (Auto) 9.0 L Towns % (Auto) 5.5 Eos % (Auto) 0.0 Baso % (Auto) 0.1 Neut # (Auto) 9.5 H Lymph # (Auto) 1.0 L Towns # (Auto) 0.6 Eos # (Auto) 0.0 Baso # (Auto) 0.0 Immature Gran % 0.3 Nucleated RBC % 0.0 Immature Gran # 0.03 Nucleated RBCs # 0.00 Sodium 140 Potassium 4.1 Chloride 107 Carbon Dioxide 25 Anion Gap 12.1 BUN 11 Creatinine 0.80 GFR Calculation 114 BUN/Creatinine Ratio 13.00 Glucose 147 H Calculated Osmolality 280.4 Calcium 8.3 L Magnesium 2.2 Total Creatine Kinase CK-MB (CK-2) CK and CKMB Interp Troponin I Quality Measures - VTE Contraindication to Pharmacological VTE Prophylaxis: High Risk of Bleeding Specialty Discharge - Follow Up or Referrals
[2016-12-24] MEDS: TICAGRELOR 90 MG TABLET PO SCH ×2 (09:59→21:51)
[2016-12-24] MEDS: CAPTOPRIL 6.25 MG TABLET PO SCH ×3 (09:59→21:53)
[2016-12-24] MEDS: MAGNESIUM CHLORIDE 64 MG TABLET PO SCH (09:59)
[2016-12-24] MEDS: PANTOPRAZOLE 40 MG TABLET PO SCH (09:59)
[2016-12-24] MEDS: ISOSORBIDE MONONITRATE 30 MG TABLET PO SCH (09:59)
[2016-12-24] MEDS: ASPIRIN EC 81 MG TABLET PO SCH (10:02)
[2016-12-24] MEDS: RANOLAZINE 500 MG TABLET PO SCH ×2 (10:02→21:50)
--- NOTE | 2016-12-24 17:17 | ECHO Report ---
Valdez Kothari Exam Date: 12/24/2016 07:27 Referring Physician: Technologist: Brittany Arshad RDCS Age: 61 Ht (in): 69 Wt (lb): 175 Gender: M Exam Location: [facility] Echo Indications: Chest pain, unspecified, Abnormal electrocardiogram [ECG] [EKG], CAD with previous CABG, COPD, Nicotine dependence, cigarettes, uncomplicated BP: 90 / 59 HR: 67 Rhythm: Sinus Technical Quality: Good IMPRESSIONS Left ventricular ejection fraction is estimated at 50 %., ?upper septal hypokinesis The right atrium is mildly enlarged.. The left atrium is mildly enlarged. Trace to mild mitral valve regurgitation. Aortic valve sclerosis without stenosis or regurgitation. Mild tricuspid valve regurgitation. Tricuspid regurgitation velocities suggest a PAP of 43 mmHg. Trace to mild pulmonary valve regurgitation. MEASUREMENTS (Male / Female) Normal Values 2D ECHO LV Diastolic Diameter PLAX 4.4 cm 4.2 - 5.9 / 3.9 - 5.3 cm LV Systolic Diameter PLAX 3.4 cm LV Fractional Shortening PLAX 21.7 % IVS Diastolic Thickness 1.0 cm 0.6 - 1.0 / 0.6 - 0.9 cm LVPW Diastolic Thickness 1.1 cm 0.6 - 1.0 / 0.6 - 0.9 cm RV Internal Dim ED PLAX 1.8 cm Aortic Root Diameter 3.1 cm LA Systolic Diameter LX 4.7 cm 3.0 - 4.0 / 2.7 - 3.8 cm DOPPLER TR Peak Velocity 286.0 cm/s TR Peak Gradient 32.7 mmHg FINDINGS Left Ventricle Normal left ventricular cavity size. Normal left ventricular wall thickness. Left ventricular ejection fraction is estimated at 50 %. ? upper septal hypokinesis Right Ventricle The right ventricle is normal in size and function. Right Atrium The right atrium is mildly enlarged. Left Atrium The left atrium is mildly enlarged. Mitral Valve Morphologically normal mitral valve. Trace to mild mitral valve regurgitation. Aortic Valve Aortic valve sclerosis without stenosis or regurgitation. Tricuspid Valve Morphologically normal tricuspid valve. Mild tricuspid valve regurgitation. Tricuspid regurgitation velocities suggest a PAP of 43 mmHg. Pulmonic Valve Morphologically normal pulmonic valve. Trace to mild pulmonary valve regurgitation. Pericardium Normal pericardium without effusion. Aorta Normal ascending aorta dimension. Qasim Hernadez MD (Electronically Signed) Final Date: 24 December 2016 17:16
[2016-12-24] MEDS: traMADol 50 MG TABLET PO SCH ×2 (17:54→21:50)
[2016-12-24] MEDS: GABAPENTIN 100 MG CAPSULE PO SCH ×2 (17:55→21:52)
[2016-12-24] MEDS: buPROPion 75 MG TABLET PO SCH ×2 (17:55→21:50)
[2016-12-24] MEDS: ACETAMINOPHEN 325 MG TABLET PO SCH ×2 (17:55→21:52)
[2016-12-24] MEDS: ATORVASTATIN 40 MG TABLET PO SCH (21:51)
[2016-12-25] MEDS: CARVEDILOL 12.5 MG TABLET PO SCH ×4 (03:24→23:56)
[2016-12-25 04:51] LABS: Basophils % 0.2 % (0.0-0.8); Eosinophils % 0.1 % (0.00-10.9); Hematocrit 42.5 VOL% (42.0-52.0); Hemoglobin 14.3 GM/DL (14.0-18.0); Immature Granulocytes % 0.3 %; Immature Granulocytes Absolute 0.04 #; Lymphocytes # 3.1 10*3/uL (1.4-4.0); Lymphocytes % 25.8 % (21.2-54.2); Mean Corpuscular HGB Conc 33.6 GM/DL (32-36); Mean Corpuscular Hemoglobin 33 PG (27-34); Mean Corpuscular Volume 98.6 FL (87-102); Mean Platelet Volume 11.4 FL (9.6-12.0); Monocytes # 1.2 10*3/uL (0.11-0.8); Monocytes % 9.7 % (1.7-12.7); Neutrophils # 7.7 10*3/uL (1.4-7.4); Neutrophils % 63.9 % (38.7-73.9); Platelet Count 180 T/CUMM (130-400); Red Blood Count 4.31 MC/CUMM (3.8-5.5); Red Cell Distribution Width 13.2 % (9.3-17.3)
[2016-12-25 05:30] LABS: Albumin 3.2 G/DL (3.4-5.0); Bilirubin,Direct 0.1 MG/DL (0.0-0.20); Bilirubin,Indirect 0.8 MG/DL (0.0-1.0); Bilirubin,Total 0.9 MG/DL (0.2-1.0); Calcium 8.3 MG/DL (8.5-10.1); Osmolality,Calculated 281.4 MOS/KG (273-304); Risk Ratio 2.13; Total Protein 6.3 G/DL (6.4-8.3)
--- NOTE | 2016-12-25 07:28 | EKG Report ---
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
[2016-12-25] MEDS: ASPIRIN EC 81 MG TABLET PO SCH (08:51)
[2016-12-25] MEDS: MAGNESIUM CHLORIDE 64 MG TABLET PO SCH (08:51)
[2016-12-25] MEDS: ACETAMINOPHEN 325 MG TABLET PO SCH ×2 (08:51→21:40)
[2016-12-25] MEDS: TICAGRELOR 90 MG TABLET PO SCH ×2 (08:52→21:38)
[2016-12-25] MEDS: GABAPENTIN 100 MG CAPSULE PO SCH ×2 (08:52→21:40)
[2016-12-25] MEDS: traMADol 50 MG TABLET PO SCH ×2 (08:53→21:41)
[2016-12-25] MEDS: ISOSORBIDE MONONITRATE 30 MG TABLET PO SCH (08:53)
[2016-12-25] MEDS: PANTOPRAZOLE 40 MG TABLET PO SCH (08:53)
[2016-12-25] MEDS: RANOLAZINE 500 MG TABLET PO SCH (08:53)
[2016-12-25] MEDS: buPROPion 75 MG TABLET PO SCH ×2 (08:54→21:42)
[2016-12-25] MEDS: CAPTOPRIL 6.25 MG TABLET PO SCH (08:54)
[2016-12-25 10:38] LABS: CKMB % 12.5 %
[2016-12-25 10:39] LABS: Troponin I Only 16.7 NG/ML (0.00-0.045)
--- NOTE | 2016-12-25 12:19 | Cardiology Progress Note ---
<Sarah Ha E - Last Filed: 12/25/16 11:44> Assessment and Plan - Time spent with patient Time spent with patient: Greater than 30 minutes (1) Status post aorto-coronary artery bypass graft Status: Chronic Assessment and plan: See plan of care listed below Current Visit: Yes (2) Abnormal EKG Status: Acute Assessment and plan: See plan of care listed below Current Visit: Yes (3) COPD (chronic obstructive pulmonary disease) Status: Chronic Assessment and plan: See plan of care listed below Current Visit: Yes (4) Chest pain Status: Resolved Assessment and plan: See plan of care listed below Current Visit: Yes (5) Coronary artery disease Status: Chronic Assessment and plan: See plan of care listed below Current Visit: Yes (6) Hyperlipidemia Status: Chronic Assessment and plan: See plan of care listed below Current Visit: Yes (7) Tobacco abuse Status: Chronic Assessment and plan: See plan of care listed below Current Visit: Yes (8) NSTEMI (non-ST elevated myocardial infarction) Status: Acute Assessment and plan: Continue current plan of care Current Visit: Yes (9) Right carotid bruit Status: Chronic Assessment and plan: Continue current plan of care Current Visit: Yes Cardiology - PN: Subj Interval history: SHIFT LEADER: DR. VALDEZ PCP: DR. FORD SUMMARY: Mr. Kothari is a 61 year old male previously followed by Dr. Valdez. Risk factors include: Known coronary artery disease (status post CABG twice), CVA, hypertension, dyslipidemia, tobaccoism. Also a history of DVT in 1999, COPD. Patient presented to the emergency department December 23, 2016 with complaints of chest pain radiating through to his right shoulder blade. Initial troponin was negative with a stable EKG. Because patient could not get pain free, he was taken to the cardiac catheterization lab urgently where Dr. Hernadez performed LHC with the following noted: Impression: Significant three-vessel coronary disease Occluded vein graft to the obtuse marginal--old Patent vein graft to the LAD-with some moderate disease in the midportion of the graft Patent vein graft to the right coronary Occluded vein graft to the diagonal-its midportion, this seemed acutely occluded , may be the cause of the infarct/severe chest pain Mildly ectatic aortic root without significant regurgitant regurgitation. One vein graft was noted to emanate from the aorta. Normal global/regional LV systolic function, LVEF 50-55% Low LVEDP, less than 4 mmHg Aggrastat bolus and infusion-for PCI Status post successful stenting and PTCA of the mid circumflex and distal circumflex, respectively Angiogram right femoral artery Angio-Seal right femoral artery Plan/recommendations: The patient will have risk factors optimized. I will discuss with patient again about importance of stopping smoking. The patient will be on antiplatelet medications to include aspirin indefinitely and Plavix or Brilinta for at least a year. He will be on a beta-octaviano if he is not already on it. Follow-up will be scheduled. DECEMBER 24, 2016: Patient tolerated the procedure well and without complication. Chest pain has resolved though he does have mild right upper back discomfort much improved from yesterday. His troponin is elevated and we are continuing to follow as this is expected. EKG this morning looks much better than prior to heart cath. Creatinine is stable this morning. Continue aspirin and Brilinta, captopril, lipid-lowering agent. Blood pressure will allow, will introduce low-dose beta-octaviano. He is tolerating isosorbide mononitrate. In the past, this is causing significant headache but he seems to be tolerating this okay. Also, I will add Ranexa. He was given a prescription for this several years ago but did not have insurance that would cover it at the time. He had no adverse reactions while taking and I will restart that today. Echocardiogram has been ordered. Carotid ultrasound reveals no significant evidence of stenosis. Transfer to telemetry, continue to monitor overnight, ambulate and possibly discharged Friday or . DECEMBER 25, 2016: Ms. Kothari was transferred to the telemetry unit last evening. He rested relatively well. He is having no additional chest pain at this time. Troponin ordered this morning is elevated at 16.7, CK-MB and CPK are trending down this morning. He continues to take aspirin, Brilinta, beta octaviano, MACIEL inhibitor, isosorbide mononitrate and Ranexa. Systolic blood pressure averaging 90s-110. Today I will decrease his MACIEL inhibitor. He does have a problem taking isosorbide mononitrate in the past. He has found that he has a headache after taking isosorbide. And we discussed taking this in the evenings , prior sleep. Also taking Tylenol 30 minutes prior to isosorbide. If after a week of this regimen he continues to have headache, he may discontinue the isosorbide. Hopefully, patient will be discharged tomorrow. We will continue to follow his troponin and plan for discharge tomorrow. ASSESSMENT/PLAN: 1. ANGINA - has been revascularized 2. KNOWN CAD S/P CABG TWICE -now status post successful PTCA and stenting of the mid circumflex and distal circumflex 3. HYPERTENSION - on an MACIEL inhibitor, beta blockade. 4. DYSLIPIDEMIA - continue lipid-lowering agent. LDL is 54 5. TOBACCOISM - merits of tobacco cessation was discussed for greater than 5 minutes today 6. IVP DYE ALLERGY - no adverse reaction has been noted 7. NSTEMI - continue current plan of care. 8. RIGHT CAROTID BRUIT - benign per US Exam (Progress Note) - Constitutional Vitals: Period Temp Pulse Resp BP Sys/Paulino Pulse Ox Last 24 Hr 97.1 F-98.3 F 64-69 18-20 98-113/63-72 95-97 Exam: General: [Appears well with no apparent distress.] [Pleasant and cooperative. ] [Appears comfortable.] HEENT: [PERRL, normocephalic, atraumatic. Mucous membranes moist. No jaundice noted. Conjunctiva moist and clear, sclerae anicteric] Neck: No JVD/HJR, no thyromegaly or lymphadenopathy noted. Right carotid bruit appreciated. Cardiac: [Regular rate and rhythm.] [No murmur rub or gallop.] Lungs: [Clear to auscultation without accessory muscle use to assist the respiratory pattern.] Oxygen in use via nasal cannula Abdomen: Soft, bowel sounds normoactive. Nontender and nondistended. No abdominal bruit or thrill noted. No masses noted. Musculoskeletal: No fluid collection. Decreased range of motion is noted. Extremities: Right groin soft, free of hematoma or bruit. Mild ecchymosis noted. No clubbing, cyanosis noted. [ No edema noted.] Upper extremity pulses 2+. Lower extremity pulses 1+. Capillary refill less than 3 seconds. Skin: No unusual lesions or rashes. No skin breakdown appreciated. Neuro: Awake, alert and oriented 3. Moves all extremities well without hemiparesis or paralysis. No essential tremor is appreciated. Result/EKG - Labs CBC & BMP: 12/25/16 04:10 04/26/17 04:10 Lab Results: I have reviewed the past 24 hour labs Labs: Laboratory Results - last 24 hr 12/25/16 12/25/16 12/25/16 04:10 04:10 09:52 WBC 12.0 RBC 4.31 Hgb 14.3 Hct 42.5 MCV 98.6 MCH 33 MCHC 33.6 RDW 13.2 Plt Count 180 MPV 11.4 Neut % (Auto) 63.9 Lymph % (Auto) 25.8 [place] % (Auto) 9.7 Eos % (Auto) 0.1 Baso % (Auto) 0.2 Neut # (Auto) 7.7 H Lymph # (Auto) 3.1 [place] # (Auto) 1.2 H Eos # (Auto) 0.0 Baso # (Auto) 0.0 Immature Gran % 0.3 Nucleated RBC % 0.0 Immature Gran # 0.04 Nucleated RBCs # 0.00 Sodium 140 Potassium 4.0 Chloride 106 Carbon Dioxide 27 Anion Gap 11.0 BUN 20 H Creatinine 0.90 GFR Calculation 109 BUN/Creatinine Ratio 22.00 H Glucose 91 Calculated Osmolality 281.4 Calcium 8.3 L Magnesium 2.0 Total Bilirubin 0.90 Direct Bilirubin 0.10 Indirect Bilirubin 0.8 AST 141 H ALT 35 Alkaline Phosphatase 60 Total Creatine Kinase 312 H D CK-MB (CK-2) 39.0 H D CK and CKMB Interp 12.5 Troponin I 16.700 H D Total Protein 6.3 L Albumin 3.2 L Triglycerides 80 Cholesterol 111 LDL Cholesterol 54.0 VLDL Cholesterol 16.0 HDL Cholesterol 52 Heart Disease Risk Ratio 2.13 - Diagnostic Findings Procedure: Chest x-ray: report reviewed by me - EKG EKG results: interpreted by tn EKG shows: sinus rhythm Quality Measures - VTE Contraindication to Pharmacological VTE Prophylaxis: High Risk of Bleeding Specialty Discharge - Follow Up or Referrals <Qasim Hernadez - Last Filed: 12/25/16 19:55> Assessment and Plan (1) NSTEMI (non-ST elevated myocardial infarction) Status: Acute Current Visit: Yes (2) Smoker Status: Acute Current Visit: Yes (3) Hypotension Status: Acute Current Visit: Yes (4) COPD (chronic obstructive pulmonary disease) Status: Chronic Current Visit: Yes (5) Coronary artery disease Status: Chronic Current Visit: Yes (6) Hyperlipidemia Status: Chronic Current Visit: Yes (7) Status post aorto-coronary artery bypass graft Status: Chronic Current Visit: Yes Exam (Progress Note) - Constitutional Vitals: Period Temp Pulse Resp BP Sys/Paulino Pulse Ox Last 24 Hr 97.1 F-98.2 F 63-69 18-20 93-113/57-72 94-97 Result/EKG - Labs CBC & BMP: 12/25/16 04:10 12/25/16 04:10 Labs: Laboratory Results - last 24 hr 12/25/16 12/25/16 12/25/16 04:10 04:10 09:52 WBC 12.0 RBC 4.31 Hgb 14.3 Hct 42.5 MCV 98.6 MCH 33 MCHC 33.6 RDW 13.2 Plt Count 180 MPV 11.4 Neut % (Auto) 63.9 Lymph % (Auto) 25.8 [place] % (Auto) 9.7 Eos % (Auto) 0.1 Baso % (Auto) 0.2 Neut # (Auto) 7.7 H Lymph # (Auto) 3.1 [place] # (Auto) 1.2 H Eos # (Auto) 0.0 Baso # (Auto) 0.0 Immature Gran % 0.3 Nucleated RBC % 0.0 Immature Gran # 0.04 Nucleated RBCs # 0.00 Sodium 140 Potassium 4.0 Chloride 106 Carbon Dioxide 27 Anion Gap 11.0 BUN 20 H Creatinine 0.90 GFR Calculation 109 BUN/Creatinine Ratio 22.00 H Glucose 91 Calculated Osmolality 281.4 Calcium 8.3 L Magnesium 2.0 Total Bilirubin 0.90 Direct Bilirubin 0.10 Indirect Bilirubin 0.8 AST 141 H ALT 35 Alkaline Phosphatase 60 Total Creatine Kinase 312 H D CK-MB (CK-2) 39.0 H D CK and CKMB Interp 12.5 Troponin I 16.700 H D Total Protein 6.3 L Albumin 3.2 L Triglycerides 80 Cholesterol 111 LDL Cholesterol 54.0 VLDL Cholesterol 16.0 HDL Cholesterol 52 Heart Disease Risk Ratio 2.13 12/25/16 12:40 WBC RBC Hgb Hct MCV MCH MCHC RDW Plt Count MPV Neut % (Auto) Lymph % (Auto) [place] % (Auto) Eos % (Auto) Baso % (Auto) Neut # (Auto) Lymph # (Auto) [place] # (Auto) Eos # (Auto) Baso # (Auto) Immature Gran % Nucleated RBC % Immature Gran # Nucleated RBCs # Sodium Potassium Chloride Carbon Dioxide Anion Gap BUN Creatinine GFR Calculation BUN/Creatinine Ratio Glucose Calculated Osmolality Calcium Magnesium Total Bilirubin Direct Bilirubin Indirect Bilirubin AST ALT Alkaline Phosphatase Total Creatine Kinase 274 CK-MB (CK-2) 30.9 H D CK and CKMB Interp 11.3 Troponin I 14.800 H Total Protein Albumin Triglycerides Cholesterol LDL Cholesterol VLDL Cholesterol HDL Cholesterol Heart Disease Risk Ratio
[2016-12-25 13:32] LABS: CKMB % 11.3 %
[2016-12-25 13:34] LABS: Troponin I Only 14.8 NG/ML (0.00-0.045)
[2016-12-25 20:57] LABS: CKMB % 9.1 %
[2016-12-25 20:58] LABS: Troponin I Only 10.5 NG/ML (0.00-0.045)
[2016-12-25] MEDS: ATORVASTATIN 40 MG TABLET PO SCH (21:39)
[2016-12-26 05:23] LABS: Basophils % 0.3 % (0.0-0.8); Hematocrit 44.2 VOL% (42.0-52.0); Hemoglobin 15.3 GM/DL (14.0-18.0); Immature Granulocytes % 0.2 %; Immature Granulocytes Absolute 0.02 #; Lymphocytes # 3.2 10*3/uL (1.4-4.0); Mean Corpuscular HGB Conc 34.6 GM/DL (32-36); Mean Corpuscular Hemoglobin 34 PG (27-34); Mean Corpuscular Volume 96.7 FL (87-102); Monocytes # 1.2 10*3/uL (0.11-0.8); Monocytes % 11.8 % (1.7-12.7); Neutrophils # 5.5 10*3/uL (1.4-7.4); Neutrophils % 55.7 % (38.7-73.9); Platelet Count 190 T/CUMM (130-400); Red Blood Count 4.57 MC/CUMM (3.8-5.5); White Blood Count 9.9 T/CUMM (4-12)
[2016-12-26] MEDS: CARVEDILOL 12.5 MG TABLET PO SCH (05:55)
[2016-12-26 06:06] LABS: Calcium 8.4 MG/DL (8.5-10.1); Osmolality,Calculated 279.4 MOS/KG (273-304); Potassium 4.2 MMOL/L (3.5-5.1)
[2016-12-26 07:33] VITALS: BP 95/62
--- NOTE | 2016-12-26 07:54 | EKG Report ---
Stationary ECG Study [facility] Test Date: 12/26/2016 7:55:33 AM Pat Name: ALOK JADE Department: Room: 277 Gender: M School Psychologist: DAMARIS : 1955 Requested by: Wenceslao Hernadez Order Number: [id number] Reading MD: WENCESLAO HERNADEZ Intervals [place] Rate: 64 P: 61 NV: 119 QRS: -27 QRSD: 142 T: 75 QT: 417 QTc: 426 Interpretive Statements SINUS RHYTHM WITH SHORT NV INTERVAL INDETERMINATE AXIS RIGHT BUNDLE BRANCH BLOCK INTERPRETATION BASED ON A DEFAULT AGE OF 40 YEARS Electronically Signed On 12-26-16 15:00:25 CDT by WENCESLAO HERNADEZ [email or web address]
[2016-12-26] MEDS: PANTOPRAZOLE 40 MG TABLET PO SCH (08:34)
[2016-12-26] MEDS: traMADol 50 MG TABLET PO SCH (08:34)
[2016-12-26] MEDS: MAGNESIUM CHLORIDE 64 MG TABLET PO SCH (08:34)
[2016-12-26] MEDS: ACETAMINOPHEN 325 MG TABLET PO SCH (08:34)
[2016-12-26] MEDS: ISOSORBIDE MONONITRATE 30 MG TABLET PO SCH (08:34)
[2016-12-26] MEDS: GABAPENTIN 100 MG CAPSULE PO SCH (08:34)
[2016-12-26] MEDS: ASPIRIN EC 81 MG TABLET PO SCH (08:34)
[2016-12-26] MEDS: buPROPion 75 MG TABLET PO SCH (08:34)
[2016-12-26] MEDS: TICAGRELOR 90 MG TABLET PO SCH (08:34)
[2016-12-26] MEDS ORDERED: LISINOPRIL 2.5 MG TABLET PO SCH (09:00)
--- NOTE | 2016-12-26 10:06 | Discharge Summary ---
Hospital Course - Hospital Course Hospital Course: SERVICE NOW DEVELOPER: DR. VALDEZ PCP: DR. FUENTES SUMMARY: Mr. Kothari is a 61 year old male previously followed by Dr. Valdez. Risk factors include: Known coronary artery disease (status post CABG twice), CVA, hypertension, dyslipidemia, tobaccoism. Also a history of DVT in 1999, COPD. Patient presented to the emergency department December 23, 2016 with complaints of chest pain radiating through to his right shoulder blade. Initial troponin was negative with a stable EKG. Because patient could not get pain free, he was taken to the cardiac catheterization lab urgently where Dr. Hernadez performed LHC with the following noted: Impression: Significant three-vessel coronary disease Occluded vein graft to the obtuse marginal--old Patent vein graft to the LAD-with some moderate disease in the midportion of the graft Patent vein graft to the right coronary Occluded vein graft to the diagonal-its midportion, this seemed acutely occluded , may be the cause of the infarct/severe chest pain Mildly ectatic aortic root without significant regurgitant regurgitation. One vein graft was noted to emanate from the aorta. Normal global/regional LV systolic function, LVEF 50-55% Low LVEDP, less than 4 mmHg Aggrastat bolus and infusion-for PCI Status post successful stenting and PTCA of the mid circumflex and distal circumflex, respectively Angiogram right femoral artery Angio-Seal right femoral artery Plan/recommendations: The patient will have risk factors optimized. I will discuss with patient again about importance of stopping smoking. The patient will be on antiplatelet medications to include aspirin indefinitely and Plavix or Brilinta for at least a year. He will be on a beta-octaviano if he is not already on it. Follow-up will be scheduled. DECEMBER 24, 2016: Patient tolerated the procedure well and without complication. Chest pain has resolved though he does have mild right upper back discomfort much improved from yesterday. His troponin is elevated and we are continuing to follow as this is expected. EKG this morning looks much better than prior to heart cath. Creatinine is stable this morning. Continue aspirin and Brilinta, captopril, lipid-lowering agent. Blood pressure will allow, will introduce low-dose beta-octaviano. He is tolerating isosorbide mononitrate. In the past, this is causing significant headache but he seems to be tolerating this okay. Also, I will add Ranexa. He was given a prescription for this several years ago but did not have insurance that would cover it at the time. He had no adverse reactions while taking and I will restart that today. Echocardiogram has been ordered. Carotid ultrasound reveals no significant evidence of stenosis. Transfer to telemetry, continue to monitor overnight, ambulate and possibly discharged Friday or . DECEMBER 25, 2016: Ms. Kothari was transferred to the telemetry unit last evening. He rested relatively well. He is having no additional chest pain at this time. Troponin ordered this morning is elevated at 16.7, CK-MB and CPK are trending down this morning. He continues to take aspirin, Brilinta, beta octaviano, MACIEL inhibitor, isosorbide mononitrate and Ranexa. Systolic blood pressure averaging 90s-110. Today I will decrease his MACIEL inhibitor. He does have a problem taking isosorbide mononitrate in the past. He has found that he has a headache after taking isosorbide. And we discussed taking this in the evenings , prior sleep. Also taking Tylenol 30 minutes prior to isosorbide. If after a week of this regimen he continues to have headache, he may discontinue the isosorbide. Hopefully, patient will be discharged tomorrow. We will continue to follow his troponin and plan for discharge tomorrow. DECEMBER 26, 2016: Troponin peaked at 16.70 and trending down. He has been walking without complaints of chest pain, heaviness or tightness. He is anxious for release home this morning. Right groin is soft and free of hematoma or bruit. Labs stable. Dr. Hernadez has seen patient and agrees with discharge. He will be given a 1-2 week F/U with Dr. Valdez. At that visit, the following will be obtained: BMP, Mg, CBC. EKG. Having felt she has met maximal medical therapy , he is being discharged home in stable condition. Discharge meds: Aspirin 81 mg orally daily Brilinta 90 mg orally twice daily. He is being given a prescription card Atorvastatin 40 mg orally each evening Carvedilol 12.5 mg orally twice daily Isosorbide mononitrate 30 mg orally daily Wellbutrin 75 mg orally twice daily Blood pressure will not tolerate an MACIEL inhibitor. - Time spent with patient Time with patient DS: Greater than 30 minutes Time spent discussing smoking cessation with patient: 3 to 10 minutes Diagnosis - Discharge Diagnosis (1) Status post aorto-coronary artery bypass graft Status: Chronic (2) Abnormal EKG Status: Chronic (3) COPD (chronic obstructive pulmonary disease) Status: Chronic (4) Chest pain Status: Resolved (5) Coronary artery disease Status: Chronic (6) Hyperlipidemia Status: Chronic (7) Tobacco abuse Status: Chronic (8) NSTEMI (non-ST elevated myocardial infarction) Status: Resolved (9) Right carotid bruit Status: Chronic Specialty Discharge - Follow Up or Referrals Follow up with: Haseeb Valdez MD [Physician] - (2 weeks: BMP, Mg, CBC. EKG) Zari Fuentes M.D. [Primary Care Provider] - 1 Month Discharge Plan - Discharge Data Disposition: Disch To Home/Self Care Condition at Discharge: Stable Discharge Diet: heart healthy Activity: other (Post cath expectations) Hygiene: other (Post cath expectations) Weight Bearing at Discharge: other (Post cath expectations) Driving: other (Post cath expected) Contact your physician if you experience:: fever over 101, Difficulty voiding, Redness or swelling, Nausea/Vomiting, Shortness of breath, Bleeding, pain uncontrolled by pain medications - Discharge Medications New Atorvastatin [Lipitor] 40 mg PO BEDTIME #30 tablet Pantoprazole Tab [Protonix Tab] 40 mg PO DAILY #30 tablet Ticagrelor [Brilinta] 90 mg PO BID #60 tablet buPROPion [Wellbutrin] 75 mg PO BID #60 tablet Aspirin EC Tab 81 mg PO DAILY #30 tablet Nitroglycerin Sl Tab [Nitrostat] 0.4 mg SL Q5M PRN #0 tablet PRN Reason: Chest Pain Continue Isosorbide Mononitrate [Isosorbide Mononitrate ER] 30 mg PO QAM Carvedilol [Coreg] 12.5 mg PO BID #60 bottle Magnesium Chloride [Slow Mag] 64 mg PO DAILY Discontinued Simvastatin 40 mg PO BEDTIME Amlodipine Besylate/Benazepril [Amlodipine-Benazepril 5-20 mg] 1 each PO DAILY Clopidogrel [Plavix] 75 mg PO DAILY - Follow Up or Referral - Forms/Instructions Instructions: Left Heart Catheterization (DC), How to Stop Smoking (GEN), Heart Healthy Diet (GEN), How to Stop Smoking, Radiator Repairer (GEN), Coronary Intravascular Stent Placement, Radiator Repairer (GEN) Additional Discharge Instructions: Brilinta Card Exam - Constitutional Vitals: Period Temp Pulse Resp BP Sys/Paulino Pulse Ox Last 24 Hr 96.8 F-98.2 F 63-70 18-20 93-111/57-71 90-100 Exam: General: [Appears well with no apparent distress.] [Pleasant and cooperative. ] [Appears comfortable.] HEENT: [PERRL, normocephalic, atraumatic. Mucous membranes moist. No jaundice noted. Conjunctiva moist and clear, sclerae anicteric] Neck: No JVD/HJR, no thyromegaly or lymphadenopathy noted. Right carotid bruit appreciated. Cardiac: [Regular rate and rhythm.] [No murmur rub or gallop.] Lungs: [Clear to auscultation without accessory muscle use to assist the respiratory pattern.] Oxygen in use via nasal cannula Abdomen: Soft, bowel sounds normoactive. Nontender and nondistended. No abdominal bruit or thrill noted. No masses noted. Musculoskeletal: No fluid collection. Decreased range of motion is noted. Extremities: Right groin soft, free of hematoma or bruit. Mild ecchymosis noted. No clubbing, cyanosis noted. [ No edema noted.] Upper extremity pulses 2+. Lower extremity pulses 1+. Capillary refill less than 3 seconds. Skin: No unusual lesions or rashes. No skin breakdown appreciated. Neuro: Awake, alert and oriented 3. Moves all extremities well without hemiparesis or paralysis. No essential tremor is appreciated. Discharge Results Labs on day of discharge: Labs from last 24 hours 12/26/16 12/26/16 12/25/16 04:54 04:54 20:03 WBC 9.9 RBC 4.57 Hgb 15.3 Hct 44.2 MCV 96.7 MCH 34 MCHC 34.6 RDW 13.0 Plt Count 190 MPV 11.0 Neut % (Auto) 55.7 Lymph % (Auto) 32.0 [place] % (Auto) 11.8 Eos % (Auto) 0.0 Baso % (Auto) 0.3 Neut # (Auto) 5.5 Lymph # (Auto) 3.2 [place] # (Auto) 1.2 H Eos # (Auto) 0.0 Baso # (Auto) 0.0 Immature Gran % 0.2 Nucleated RBC % 0.0 Immature Gran # 0.02 Nucleated RBCs # 0.00 Sodium 140 Potassium 4.2 Chloride 106 Carbon Dioxide 28 Anion Gap 10.2 BUN 15 Creatinine 1.00 GFR Calculation 90 BUN/Creatinine Ratio 15.00 Glucose 93 Calculated Osmolality 279.4 Calcium 8.4 L Magnesium 2.0 Total Creatine Kinase 192 D CK-MB (CK-2) 17.5 H D CK and CKMB Interp 9.1 Troponin I 10.500 H D 12/25/16 12/25/16 12:40 09:52 WBC RBC Hgb Hct MCV MCH MCHC RDW Plt Count MPV Neut % (Auto) Lymph % (Auto) [place] % (Auto) Eos % (Auto) Baso % (Auto) Neut # (Auto) Lymph # (Auto) [place] # (Auto) Eos # (Auto) Baso # (Auto) Immature Gran % Nucleated RBC % Immature Gran # Nucleated RBCs # Sodium Potassium Chloride Carbon Dioxide Anion Gap BUN Creatinine GFR Calculation BUN/Creatinine Ratio Glucose Calculated Osmolality Calcium Magnesium Total Creatine Kinase 274 312 H D CK-MB (CK-2) 30.9 H D 39.0 H D CK and CKMB Interp 11.3 12.5 Troponin I 14.800 H 16.700 H D - Imaging and Cardiology Procedure: Chest x-ray: report reviewed by me DS: Provider Date of admission: 12/23/16 13:21 Primary care physician: Zari Fuentes M.D. Attending physician on admission: Qasim Hernadez MD Consults: 12/23/16 14:28 Consult to Pharmacy [CONS] Routine Reason for Pharmacy Consult: Adjust Meds Renal Funct Discharging clinician: Sarah Ha NP Expected date of discharge: 12/26/16
== END 2016-12-26 11:25 | disposition home or self-care (01) | DRG 247 ==
LOC: N.EDINP 08:03 → N.ED 08:03 → N.EDINP 11:42 → N.CC 14:05 → N.TELES 12-24 11:17
PROVIDERS: ADMIT Internal Medicine Cardiovascular Disease; ATTEND Internal Medicine Cardiovascular Disease

== ENCOUNTER 2018-06-03 00:06 | Inpatient (IN) ==
[2018-06-03] MEDS ORDERED: ALUM/MAG/SIMETH/LIDO VISC 1:1 30 ML BOTTLE PO STA (00:37)
[2018-06-03] MEDS ORDERED: MORPHINE 4 MG/1 ML VIAL IV STA ×2 (00:37→01:48)
[2018-06-03] MEDS ORDERED: NITROGLYCERIN 2% OINT 1 INCH/GM PACK TOP STA (00:37)
[2018-06-03] MEDS ORDERED: PANTOPRAZOLE 40 MG VIAL IV STA (00:37)
[2018-06-03] MEDS ORDERED: ONDANSETRON 4 MG/2 ML VIAL IV STA (00:37)
[2018-06-03] MEDS ORDERED: ASPIRIN 325 MG TABLET PO STA (00:37)
[2018-06-03 00:50] LABS: Basophils # 0.1 10*3/uL (0.0-0.2); Basophils % 0.8 % (0.0-0.8); Eosinophils % 0.1 % (0.00-10.9); Hematocrit 42.2 VOL% (42.0-52.0); Hemoglobin 14.2 GM/DL (14.0-18.0); Immature Granulocytes % 0.2 %; Immature Granulocytes Absolute 0.02 #; Lymphocytes # 3.5 10*3/uL (1.4-4.0); Lymphocytes % 40.2 % (21.2-54.2); Mean Corpuscular HGB Conc 33.6 GM/DL (32-36); Mean Corpuscular Hemoglobin 34 PG (27-34); Mean Corpuscular Volume 100.2 FL (87-102); Mean Platelet Volume 10.9 FL (9.6-12.0); Monocytes # 1.2 10*3/uL (0.11-0.8); Monocytes % 13.7 % (1.7-12.7); Neutrophils # 3.9 10*3/uL (1.4-7.4); Platelet Count 193 T/CUMM (130-400); Red Blood Count 4.21 MC/CUMM (3.8-5.5); Red Cell Distribution Width 13.1 % (9.3-17.3); White Blood Count 8.6 T/CUMM (4-12)
[2018-06-03 01:00] LABS: PT Patient Result 10.2 SECS
[2018-06-03 01:06] LABS: Alanine Aminotransferase 22 U/L (16-61); Albumin 3.5 G/DL (3.4-5.0); Alkaline Phosphatase 62 U/L (45-117); Amylase 49 U/L (25-115); Aspartate Amino Transferase 22 U/L (0-37); Bilirubin,Total < 0.39 MG/DL (0.2-1.0); Blood Urea Nitrogen 14 MG/DL (7-18); Calcium 8.5 MG/DL (8.5-10.1); Glucose 101 MG/DL (74-106); Potassium 3.9 MMOL/L (3.5-5.1); Sodium 143 MMOL/L (136-145); Total Protein 7.5 G/DL (6.4-8.3)
[2018-06-03] MEDS ORDERED: ENOXAPARIN 100 MG/ML SYRINGE SUBCUT STA (01:14)
[2018-06-03] MEDS ORDERED: ACETAMINOPHEN 325 MG TABLET PO PRN (02:14)
[2018-06-03] MEDS ORDERED: ZALEPLON 5 MG CAPSULE PO PRN (02:14)
[2018-06-03] MEDS ORDERED: MAGNESIUM SULF RIDER 4 GM in PREMIX 1 EACH IV PRN (02:14)
[2018-06-03] MEDS ORDERED: MAGNESIUM SULF RIDER 2 GM in PREMIX 1 EACH IV PRN (02:14)
[2018-06-03] MEDS ORDERED: LACTULOSE 20 GM/30 ML UDCUP PO PRN (02:14)
[2018-06-03] MEDS ORDERED: diphenhydrAMINE CAP 25 MG CAPSULE PO PRN (02:14)
[2018-06-03] MEDS ORDERED: FUROSEMIDE 40 MG/4 ML VIAL ONE (02:16)
[2018-06-03] MEDS ORDERED: LIDOCAINE 1% 20 ML VIAL ONE (02:40)
[2018-06-03] MEDS ORDERED: HEPARIN/NACL 0.9% 2 UNITS/ML 1,000 ML IV ONE (02:40)
[2018-06-03] MEDS ORDERED: EPINEPHrine 1 MG/10 ML SYRINGE ONE (02:40)
[2018-06-03] MEDS ORDERED: methylPREDNISolone SOD SUC 125 MG/2 ML VIAL ONE (02:50)
[2018-06-03 02:52] LABS: Risk Ratio 3.31; VLDL CHOLESTEROL 43.4 MG/DL
[2018-06-03] MEDS ORDERED: MIDAZOLAM 2 MG/2 ML VIAL ONE (02:53)
[2018-06-03] MEDS ORDERED: HYDROmorphone 2 MG/1 ML VIAL ONE (02:53)
[2018-06-03] MEDS ORDERED: EPTIFIBATIDE 75 MG/100 ML BOTTLE IV ONE (03:09)
[2018-06-03] MEDS ORDERED: TICAGRELOR 90 MG TABLET ONE (03:09)
[2018-06-03] MEDS ORDERED: VERAPAMIL 5 MG/2 ML VIAL ONE (04:55)
[2018-06-03] MEDS ORDERED: SODIUM CHLORIDE 0.9% 1,000 ML IV SCH (05:00)
[2018-06-03] MEDS ORDERED: AMIODARONE INJ 150 MG in DEXTROSE 5% 100 ML IV ONE (05:09)
[2018-06-03] MEDS ORDERED: EPTIFIBATIDE 20,000 MCG/10 ML VIAL ONE (05:18)
[2018-06-03] MEDS ORDERED: AMIODARONE INJ 450 MG in DEXTROSE 5% 241 ML IV SCH ×2 (05:30→11:30)
[2018-06-03] MEDS: NITROGLYCERIN 2% OINT 1 INCH/GM PACK TOP SCH ×2 (05:47→13:27)
[2018-06-03] MEDS: MORPHINE 4 MG/1 ML VIAL IV PRN ×2 (05:49→20:20)
[2018-06-03] MEDS ORDERED: ENOXAPARIN 80 MG/0.8 ML SYRINGE SUBCUT SCH (06:30)
[2018-06-03] MEDS: ONDANSETRON 4 MG/2 ML VIAL IV PRN ×2 (06:36→13:25)
[2018-06-03] MEDS ORDERED: PANTOPRAZOLE 40 MG TABLET PO SCH (09:00)
[2018-06-03] MEDS ORDERED: CARVEDILOL 12.5 MG TABLET PO SCH (09:00)
[2018-06-03] MEDS ORDERED: ASPIRIN EC 81 MG TABLET PO SCH (09:00)
[2018-06-03] MEDS: PANTOPRAZOLE 40 MG TABLET PO SCH (09:18)
[2018-06-03] MEDS: CARVEDILOL 25 MG TABLET PO SCH ×2 (09:18→20:19)
[2018-06-03] MEDS ORDERED: NITROGLYCERIN 2% OINT 1 INCH/GM PACK TOP SCH (12:00)
[2018-06-03] MEDS ORDERED: ALBUTEROL 2.5 MG/3 ML NEB RESP TX PRN (12:47)
[2018-06-03] MEDS ORDERED: NITROGLYCERIN SL 0.4 MG TABLET SL PRN (12:47)
[2018-06-03] MEDS: AMIODARONE 200 MG TABLET PO SCH ×2 (13:25→20:19)
[2018-06-03] MEDS: ISOSORBIDE MONONITRATE 30 MG TABLET PO SCH (13:25)
[2018-06-03] MEDS: ATORVASTATIN 40 MG TABLET PO SCH (20:18)
[2018-06-03] MEDS: TICAGRELOR 90 MG TABLET PO SCH (20:18)
[2018-06-03] MEDS: buPROPion 75 MG TABLET PO SCH (20:20)
[2018-06-04 02:55] LABS: Basophils % 0.1 % (0.0-0.8); Immature Granulocytes % 0.4 %; Immature Granulocytes Absolute 0.06 #; Lymphocytes # 1.6 10*3/uL (1.4-4.0); Lymphocytes % 10.5 % (21.2-54.2); Mean Corpuscular HGB Conc 34.1 GM/DL (32-36); Mean Corpuscular Hemoglobin 34 PG (27-34); Mean Corpuscular Volume 98.2 FL (87-102); Mean Platelet Volume 10.8 FL (9.6-12.0); Monocytes # 1.8 10*3/uL (0.11-0.8); Monocytes % 12.1 % (1.7-12.7); Neutrophils # 11.4 10*3/uL (1.4-7.4); Neutrophils % 76.9 % (38.7-73.9); Platelet Count 207 T/CUMM (130-400); Red Blood Count 4.48 MC/CUMM (3.8-5.5); White Blood Count 14.9 T/CUMM (4-12)
[2018-06-04] MEDS: MORPHINE 4 MG/1 ML VIAL IV PRN (02:55)
[2018-06-04 03:30] LABS: Osmolality,Calculated 275.8 MOS/KG (273-304); Potassium 3.8 MMOL/L (3.5-5.1)
[2018-06-04] MEDS: TICAGRELOR 90 MG TABLET PO SCH (08:26)
[2018-06-04] MEDS: ASPIRIN EC 81 MG TABLET PO SCH (08:26)
[2018-06-04] MEDS: MAGNESIUM CHLORIDE 64 MG TABLET PO SCH (08:27)
[2018-06-04] MEDS: LOSARTAN 50 MG TABLET PO SCH (08:27)
[2018-06-04] MEDS: buPROPion 75 MG TABLET PO SCH ×2 (08:27→21:46)
[2018-06-04] MEDS: PANTOPRAZOLE 40 MG TABLET PO SCH (08:27)
[2018-06-04] MEDS: CARVEDILOL 25 MG TABLET PO SCH ×2 (08:27→21:43)
[2018-06-04] MEDS: AMIODARONE 200 MG TABLET PO SCH ×2 (08:27→21:43)
[2018-06-04] MEDS: ISOSORBIDE MONONITRATE 30 MG TABLET PO SCH (08:27)
[2018-06-04] MEDS ORDERED: CLOPIDOGREL 75 MG TABLET PO SCH (09:00)
[2018-06-04] MEDS ORDERED: LORazepam 2 MG/1 ML VIAL IV PRN (09:32)
[2018-06-04] MEDS ORDERED: KETOROLAC 15 MG/1 ML VIAL IV ONE (10:00)
[2018-06-04] MEDS: ATORVASTATIN 40 MG TABLET PO SCH (21:42)
[2018-06-05 04:21] LABS: Basophils % 0.3 % (0.0-0.8); Hematocrit 39.2 VOL% (42.0-52.0); Hemoglobin 13.1 GM/DL (14.0-18.0); Immature Granulocytes % 0.4 %; Immature Granulocytes Absolute 0.05 #; Lymphocytes # 1.9 10*3/uL (1.4-4.0); Lymphocytes % 16.8 % (21.2-54.2); Mean Corpuscular HGB Conc 33.4 GM/DL (32-36); Mean Corpuscular Hemoglobin 33 PG (27-34); Mean Corpuscular Volume 99.2 FL (87-102); Mean Platelet Volume 11.3 FL (9.6-12.0); Monocytes # 1.7 10*3/uL (0.11-0.8); Monocytes % 14.9 % (1.7-12.7); Neutrophils # 7.6 10*3/uL (1.4-7.4); Neutrophils % 67.6 % (38.7-73.9); Platelet Count 169 T/CUMM (130-400); Red Blood Count 3.95 MC/CUMM (3.8-5.5); White Blood Count 11.2 T/CUMM (4-12)
[2018-06-05 04:43] LABS: Calcium 7.9 MG/DL (8.5-10.1); Potassium 3.3 MMOL/L (3.5-5.1)
[2018-06-05 08:15] VITALS: BP 94/67
[2018-06-05] MEDS ORDERED: CLOPIDOGREL 75 MG TABLET PO SCH (09:00)
[2018-06-05] MEDS ORDERED: FOLIC ACID 1 MG TABLET PO SCH (09:00)
[2018-06-05] MEDS ORDERED: THIAMINE 200 MG/2 ML VIAL IV SCH (09:00)
[2018-06-05] MEDS ORDERED: MULTIVITAMIN (CENTRUM) TABLET PO SCH (09:00)
[2018-06-05] MEDS ORDERED: CYANOCOBALAMIN 500 MCG TABLET PO SCH (09:00)
[2018-06-05] MEDS: ISOSORBIDE MONONITRATE 30 MG TABLET PO SCH (10:06)
[2018-06-05] MEDS: LOSARTAN 50 MG TABLET PO SCH (10:06)
[2018-06-05] MEDS: PANTOPRAZOLE 40 MG TABLET PO SCH (10:06)
[2018-06-05] MEDS: CARVEDILOL 25 MG TABLET PO SCH (10:06)
[2018-06-05] MEDS: AMIODARONE 200 MG TABLET PO SCH (10:06)
[2018-06-05] MEDS: buPROPion 75 MG TABLET PO SCH (10:06)
[2018-06-05] MEDS: ASPIRIN EC 81 MG TABLET PO SCH (10:07)
[2018-06-05] MEDS: MAGNESIUM CHLORIDE 64 MG TABLET PO SCH (10:10)
== END 2018-06-05 11:30 | disposition home or self-care (01) | DRG 246 ==
LOC: N.ED 00:06 → N.EDINP 02:41 → SUATTDRO 02:57 → N.EDINP 02:57 → N.ICU 05:11 → N.TELEN 06-04 10:30
PROVIDERS: ADMIT Internal Medicine; ATTEND Nurse Practitioner Family

== ENCOUNTER 2019-09-12 00:28 | Inpatient (IN) ==
[2019-09-12] MEDS ORDERED: ALBUTEROL/IPRATROPIUM 3 ML NEB RESP TX STA (00:52)
[2019-09-12] MEDS ORDERED: methylPREDNISolone SOD SUC 125 MG/2 ML VIAL IV STA (00:52)
[2019-09-12 01:22] LABS: Hematocrit 42.8 VOL% (42.0-52.0); Mean Corpuscular HGB Conc 32.7 GM/DL (32-36); Mean Corpuscular Volume 103.1 FL (87-102); Mean Platelet Volume 10.6 FL (9.6-12.0); Platelet Count 204 T/CUMM (130-400); Red Blood Count 4.15 MC/CUMM (3.8-5.5); Red Cell Distribution Width 13.8 % (9.3-17.3); White Blood Count 9.2 T/CUMM (4-12)
[2019-09-12 01:23] LABS: Basophils # 0.1 10*3/uL (0.0-0.2); Basophils % 0.8 % (0.0-0.8); Immature Granulocytes % 0.2 %; Immature Granulocytes Absolute 0.02 #; Lymphocytes # 2.6 10*3/uL (1.4-4.0); Lymphocytes % 28.4 % (21.2-54.2); Monocytes % 8.8 % (1.7-12.7); Neutrophils % 61.8 % (38.7-73.9)
[2019-09-12 01:43] LABS: Albumin 3.6 G/DL (3.4-5.0); Bilirubin,Total 0.6 MG/DL (0.2-1.0); Calcium 8.7 MG/DL (8.5-10.1); Osmolality,Calculated 287.8 MOS/KG (273-304); Total Protein 7.7 G/DL (6.4-8.3)
[2019-09-12] MEDS ORDERED: LEVOFLOXACIN INJ 750 MG in PREMIX 1 EACH IV STA (03:06)
[2019-09-12] MEDS ORDERED: DOCUSATE SODIUM 100 MG CAPSULE PO PRN (03:55)
[2019-09-12] MEDS ORDERED: ALBUTEROL/IPRATROPIUM 3 ML NEB RESP TX PRN (03:55)
[2019-09-12] MEDS ORDERED: ONDANSETRON 4 MG/2 ML VIAL IV PRN (03:55)
[2019-09-12] MEDS ORDERED: BISACODYL 5 MG TABLET PO PRN (03:55)
[2019-09-12] MEDS ORDERED: ZALEPLON 5 MG CAPSULE PO PRN (03:55)
[2019-09-12] MEDS ORDERED: ACETAMINOPHEN 325 MG TABLET PO PRN (03:55)
[2019-09-12] MEDS ORDERED: traZODone 50 MG TABLET PO PRN (03:55)
[2019-09-12] MEDS ORDERED: LACTULOSE 20 GM/30 ML UDCUP PO PRN (03:55)
[2019-09-12] MEDS ORDERED: hydrALAZINE 20 MG/1 ML VIAL IV PRN (05:15)
[2019-09-12 06:14] LABS: Allen Test Positive
[2019-09-12 06:21] LABS: ABG Base Excess -0.3 MMOL/L (-2.5-2.5); ABG HCO3 24.2 MMOL/L (20-26); ABG Oxygen Saturation 98.1 % (95-100); ABG PCO2 35.9 MM HG (35-48); ABG PH 7.425 (7.35-7.45); ABG TCO2 20.3 MMOL/L (23-27)
[2019-09-12 07:08] LABS: Basophils % 0.3 % (0.0-0.8); Hematocrit 41.7 VOL% (42.0-52.0); Hemoglobin 13.5 GM/DL (14.0-18.0); Immature Granulocytes % 0.5 %; Immature Granulocytes Absolute 0.03 #; Lymphocytes # 0.8 10*3/uL (1.4-4.0); Lymphocytes % 12.7 % (21.2-54.2); Mean Corpuscular HGB Conc 32.4 GM/DL (32-36); Mean Corpuscular Volume 102.2 FL (87-102); Monocytes % 1.7 % (1.7-12.7); Neutrophils % 84.8 % (38.7-73.9); Platelet Count 186 T/CUMM (130-400); Red Blood Count 4.08 MC/CUMM (3.8-5.5); Red Cell Distribution Width 13.7 % (9.3-17.3); White Blood Count 6.6 T/CUMM (4-12)
[2019-09-12] MEDS: ALBUTEROL/IPRATROPIUM 3 ML NEB RESP TX SCH ×3 (07:15→19:42)
[2019-09-12 07:23] LABS: Calcium 8.5 MG/DL (8.5-10.1); Osmolality,Calculated 283.3 MOS/KG (273-304)
[2019-09-12 07:41] LABS: Risk Ratio 2.77; Thyroid Stimulating Hormone 1.76 uIU/ml (0.358-3.74); VLDL CHOLESTEROL 16.6 MG/DL
[2019-09-12] MEDS: NICOTINE 21 MG/24 HR PATCH TRANSDERM SCH (08:22)
[2019-09-12] MEDS: PIPERACILLIN/TAZOBACTAM 3,375 MG in SODIUM CHLORIDE 0.9% 100 ML IV SCH ×2 (08:22→15:24)
[2019-09-12] MEDS: methylPREDNISolone SOD SUC 125 MG/2 ML VIAL IV SCH ×2 (08:23→16:34)
[2019-09-12] MEDS ORDERED: ASPIRIN CHEW 81 MG TABLET PO SCH (09:00)
[2019-09-12] MEDS ORDERED: PANTOPRAZOLE 40 MG TABLET PO SCH (09:00)
[2019-09-12] MEDS ORDERED: NITROGLYCERIN SL 0.4 MG TABLET SL PRN (12:26)
[2019-09-12] MEDS ORDERED: ALBUTEROL 2.5 MG/3 ML NEB RESP TX PRN (12:26)
[2019-09-12] MEDS: LOSARTAN 50 MG TABLET PO SCH (13:16)
[2019-09-12] MEDS: ASPIRIN EC 81 MG TABLET PO SCH (13:16)
[2019-09-12] MEDS: FOLIC ACID 0.4 MG TABLET PO SCH (13:16)
[2019-09-12] MEDS: CLOPIDOGREL 75 MG TABLET PO SCH (13:16)
[2019-09-12] MEDS: MONTELUKAST 10 MG TABLET PO SCH (13:16)
[2019-09-12] MEDS: PANTOPRAZOLE 40 MG TABLET PO SCH (13:17)
[2019-09-12] MEDS: FUROSEMIDE 40 MG/4 ML VIAL IV SCH (13:17)
[2019-09-12] MEDS: THIAMINE 100 MG TABLET PO SCH (13:19)
[2019-09-12] MEDS: ATORVASTATIN 40 MG TABLET PO SCH (20:30)
[2019-09-12] MEDS: carvediloL 12.5 MG TABLET PO SCH (20:30)
[2019-09-12] MEDS: buPROPion 75 MG TABLET PO SCH (20:30)
[2019-09-13] MEDS: PIPERACILLIN/TAZOBACTAM 3,375 MG in SODIUM CHLORIDE 0.9% 100 ML IV SCH ×3 (00:01→15:43)
[2019-09-13] MEDS: ALBUTEROL/IPRATROPIUM 3 ML NEB RESP TX SCH ×4 (00:35→19:02)
[2019-09-13] MEDS: methylPREDNISolone SOD SUC 125 MG/2 ML VIAL IV SCH ×3 (00:49→17:43)
[2019-09-13 02:42] LABS: Basophils % 0.1 % (0.0-0.8); Hematocrit 38.9 VOL% (42.0-52.0); Immature Granulocytes % 0.6 %; Immature Granulocytes Absolute 0.06 #; Lymphocytes # 0.9 10*3/uL (1.4-4.0); Lymphocytes % 8.6 % (21.2-54.2); Mean Corpuscular HGB Conc 33.4 GM/DL (32-36); Mean Platelet Volume 11.2 FL (9.6-12.0); Monocytes % 2.6 % (1.7-12.7); Neutrophils % 88.1 % (38.7-73.9); Platelet Count 176 T/CUMM (130-400); Red Blood Count 3.89 MC/CUMM (3.8-5.5); Red Cell Distribution Width 13.5 % (9.3-17.3); White Blood Count 10.3 T/CUMM (4-12)
[2019-09-13 03:03] LABS: Calcium 8.1 MG/DL (8.5-10.1); Osmolality,Calculated 291.8 MOS/KG (273-304)
[2019-09-13] MEDS: LEVOFLOXACIN INJ 750 MG in PREMIX 1 EACH IV SCH (06:25)
[2019-09-13] MEDS: CLOPIDOGREL 75 MG TABLET PO SCH (08:54)
[2019-09-13] MEDS: LOSARTAN 50 MG TABLET PO SCH (08:54)
[2019-09-13] MEDS: buPROPion 75 MG TABLET PO SCH ×2 (08:54→22:18)
[2019-09-13] MEDS: carvediloL 12.5 MG TABLET PO SCH (08:54)
[2019-09-13] MEDS: ASPIRIN EC 81 MG TABLET PO SCH (08:54)
[2019-09-13] MEDS: PANTOPRAZOLE 40 MG TABLET PO SCH (08:54)
[2019-09-13] MEDS: THIAMINE 100 MG TABLET PO SCH (08:54)
[2019-09-13] MEDS: ISOSORBIDE MONONITRATE 30 MG TABLET PO SCH (08:54)
[2019-09-13] MEDS: FOLIC ACID 0.4 MG TABLET PO SCH (08:54)
[2019-09-13] MEDS: MAGNESIUM CHLORIDE 64 MG TABLET PO SCH (08:54)
[2019-09-13] MEDS: MONTELUKAST 10 MG TABLET PO SCH (08:54)
[2019-09-13] MEDS: NICOTINE 21 MG/24 HR PATCH TRANSDERM SCH (08:55)
[2019-09-13] MEDS: FUROSEMIDE 40 MG/4 ML VIAL IV SCH (08:55)
[2019-09-13] MEDS: SPIRONOLACTONE 25 MG TABLET PO SCH (09:45)
[2019-09-13] MEDS: ATORVASTATIN 40 MG TABLET PO SCH (22:18)
[2019-09-14] MEDS: ALBUTEROL/IPRATROPIUM 3 ML NEB RESP TX SCH ×4 (00:21→21:49)
[2019-09-14] MEDS: methylPREDNISolone SOD SUC 125 MG/2 ML VIAL IV SCH ×3 (02:06→17:14)
[2019-09-14] MEDS: PIPERACILLIN/TAZOBACTAM 3,375 MG in SODIUM CHLORIDE 0.9% 100 ML IV SCH ×4 (02:08→23:59)
[2019-09-14] MEDS: carvediloL 12.5 MG TABLET PO SCH ×3 (03:13→21:32)
[2019-09-14 06:08] LABS: Basophils % 0.1 % (0.0-0.8); Hematocrit 38.7 VOL% (42.0-52.0); Hemoglobin 12.8 GM/DL (14.0-18.0); Immature Granulocytes % 0.7 %; Immature Granulocytes Absolute 0.11 #; Lymphocytes # 0.8 10*3/uL (1.4-4.0); Lymphocytes % 5.3 % (21.2-54.2); Mean Corpuscular HGB Conc 33.1 GM/DL (32-36); Mean Corpuscular Volume 100.3 FL (87-102); Mean Platelet Volume 11.4 FL (9.6-12.0); Monocytes % 2.7 % (1.7-12.7); Neutrophils % 91.2 % (38.7-73.9); Platelet Count 180 T/CUMM (130-400); Red Blood Count 3.86 MC/CUMM (3.8-5.5); Red Cell Distribution Width 13.4 % (9.3-17.3); White Blood Count 14.9 T/CUMM (4-12)
[2019-09-14] MEDS: LEVOFLOXACIN INJ 750 MG in PREMIX 1 EACH IV SCH (06:11)
[2019-09-14 06:28] LABS: Lymphocytes 4 % (20-55); Platelet Estimate Normal; Segmented Neutrophils 94 % (50-85); Total Cells Counted 100
[2019-09-14 08:21] LABS: Calcium 8.4 MG/DL (8.5-10.1); Osmolality,Calculated 281.5 MOS/KG (273-304)
[2019-09-14] MEDS: MONTELUKAST 10 MG TABLET PO SCH ×3 (09:00→21:33)
[2019-09-14] MEDS: CLOPIDOGREL 75 MG TABLET PO SCH (09:19)
[2019-09-14] MEDS: NICOTINE 21 MG/24 HR PATCH TRANSDERM SCH (09:19)
[2019-09-14] MEDS: SPIRONOLACTONE 25 MG TABLET PO SCH (09:21)
[2019-09-14] MEDS: LOSARTAN 50 MG TABLET PO SCH (09:21)
[2019-09-14] MEDS: ASPIRIN EC 81 MG TABLET PO SCH (09:21)
[2019-09-14] MEDS: FUROSEMIDE 40 MG/4 ML VIAL IV SCH (09:22)
[2019-09-14] MEDS: ISOSORBIDE MONONITRATE 30 MG TABLET PO SCH (09:22)
[2019-09-14] MEDS: MAGNESIUM CHLORIDE 64 MG TABLET PO SCH (09:22)
[2019-09-14] MEDS: PANTOPRAZOLE 40 MG TABLET PO SCH (09:22)
[2019-09-14] MEDS: buPROPion 75 MG TABLET PO SCH ×2 (09:23→21:32)
[2019-09-14] MEDS: THIAMINE 100 MG TABLET PO SCH (09:23)
[2019-09-14] MEDS: FOLIC ACID 0.4 MG TABLET PO SCH (09:25)
[2019-09-14] MEDS ORDERED: POTASSIUM CHLORIDE 20 MEQ TABLET PO ONE (10:42)
[2019-09-14] MEDS: DICLOFENAC 1.3% PATCH 5/PACK TRANSDERM SCH ×2 (13:17→21:35)
[2019-09-14] MEDS: ASCORBIC ACID 500 MG TABLET PO SCH ×2 (15:41→21:33)
[2019-09-14] MEDS: ATORVASTATIN 40 MG TABLET PO SCH (21:34)
[2019-09-14 22:46] LABS: Specimen Source NASAL SWAB
[2019-09-15] MEDS: methylPREDNISolone SOD SUC 125 MG/2 ML VIAL IV SCH ×3 (02:13→16:18)
[2019-09-15] MEDS: ALBUTEROL/IPRATROPIUM 3 ML NEB RESP TX SCH ×4 (02:18→19:35)
[2019-09-15 05:35] LABS: Basophils % 0.1 % (0.0-0.8); Hematocrit 40.5 VOL% (42.0-52.0); Hemoglobin 13.2 GM/DL (14.0-18.0); Immature Granulocytes % 0.8 %; Immature Granulocytes Absolute 0.11 #; Lymphocytes # 0.8 10*3/uL (1.4-4.0); Lymphocytes % 5.8 % (21.2-54.2); Mean Corpuscular HGB Conc 32.6 GM/DL (32-36); Mean Corpuscular Volume 102.5 FL (87-102); Mean Platelet Volume 11.5 FL (9.6-12.0); Monocytes % 4.6 % (1.7-12.7); Neutrophils % 88.7 % (38.7-73.9); Platelet Count 184 T/CUMM (130-400); Red Blood Count 3.95 MC/CUMM (3.8-5.5); Red Cell Distribution Width 13.5 % (9.3-17.3); White Blood Count 13.6 T/CUMM (4-12)
[2019-09-15 05:54] LABS: Calcium 8.5 MG/DL (8.5-10.1)
[2019-09-15] MEDS: LEVOFLOXACIN INJ 750 MG in PREMIX 1 EACH IV SCH (06:39)
[2019-09-15] MEDS: PIPERACILLIN/TAZOBACTAM 3,375 MG in SODIUM CHLORIDE 0.9% 100 ML IV SCH ×2 (09:15→16:18)
[2019-09-15] MEDS: FUROSEMIDE 40 MG/4 ML VIAL IV SCH (09:17)
[2019-09-15] MEDS: ASPIRIN EC 81 MG TABLET PO SCH (09:17)
[2019-09-15] MEDS: NICOTINE 21 MG/24 HR PATCH TRANSDERM SCH (09:17)
[2019-09-15] MEDS: MAGNESIUM CHLORIDE 64 MG TABLET PO SCH (09:18)
[2019-09-15] MEDS: FOLIC ACID 0.4 MG TABLET PO SCH (09:18)
[2019-09-15] MEDS: PANTOPRAZOLE 40 MG TABLET PO SCH (09:18)
[2019-09-15] MEDS: ISOSORBIDE MONONITRATE 30 MG TABLET PO SCH (09:18)
[2019-09-15] MEDS: THIAMINE 100 MG TABLET PO SCH (09:19)
[2019-09-15] MEDS: CLOPIDOGREL 75 MG TABLET PO SCH (09:19)
[2019-09-15] MEDS: SPIRONOLACTONE 50 MG TABLET PO SCH (09:19)
[2019-09-15] MEDS: LOSARTAN 50 MG TABLET PO SCH (09:19)
[2019-09-15] MEDS: ASCORBIC ACID 500 MG TABLET PO SCH ×2 (09:19→21:28)
[2019-09-15] MEDS: MONTELUKAST 10 MG TABLET PO SCH ×2 (09:19→21:33)
[2019-09-15] MEDS: carvediloL 12.5 MG TABLET PO SCH ×2 (09:20→21:28)
[2019-09-15] MEDS: buPROPion 75 MG TABLET PO SCH ×2 (09:20→21:28)
[2019-09-15] MEDS: DICLOFENAC 1.3% PATCH 5/PACK TRANSDERM SCH ×2 (09:25→21:27)
[2019-09-15] MEDS: DORNASE ALFA 2.5 MG/2.5 ML VIAL RESP TX SCH ×2 (10:05→19:35)
[2019-09-15] MEDS: ATORVASTATIN 40 MG TABLET PO SCH (21:28)
[2019-09-16] MEDS: ALBUTEROL/IPRATROPIUM 3 ML NEB RESP TX SCH ×2 (00:48→07:43)
[2019-09-16] MEDS: PIPERACILLIN/TAZOBACTAM 3,375 MG in SODIUM CHLORIDE 0.9% 100 ML IV SCH ×2 (00:49→08:59)
[2019-09-16] MEDS: methylPREDNISolone SOD SUC 125 MG/2 ML VIAL IV SCH ×2 (01:54→08:59)
[2019-09-16 04:50] LABS: Basophils % 0.1 % (0.0-0.8); Hematocrit 39.7 VOL% (42.0-52.0); Hemoglobin 13.1 GM/DL (14.0-18.0); Immature Granulocytes % 0.7 %; Immature Granulocytes Absolute 0.08 #; Lymphocytes # 0.8 10*3/uL (1.4-4.0); Lymphocytes % 6.5 % (21.2-54.2); Mean Corpuscular Volume 101.3 FL (87-102); Mean Platelet Volume 11.6 FL (9.6-12.0); Monocytes % 6.1 % (1.7-12.7); Neutrophils % 86.6 % (38.7-73.9); Platelet Count 185 T/CUMM (130-400); Red Blood Count 3.92 MC/CUMM (3.8-5.5); Red Cell Distribution Width 13.6 % (9.3-17.3); White Blood Count 11.9 T/CUMM (4-12)
[2019-09-16 05:15] LABS: Calcium 8.4 MG/DL (8.5-10.1)
[2019-09-16] MEDS: LEVOFLOXACIN INJ 750 MG in PREMIX 1 EACH IV SCH (06:21)
[2019-09-16] MEDS: DORNASE ALFA 2.5 MG/2.5 ML VIAL RESP TX SCH (07:43)
[2019-09-16 08:25] VITALS: BP 123/76
[2019-09-16] MEDS: FUROSEMIDE 40 MG/4 ML VIAL IV SCH (08:59)
[2019-09-16] MEDS: NICOTINE 21 MG/24 HR PATCH TRANSDERM SCH (09:00)
[2019-09-16] MEDS: FOLIC ACID 0.4 MG TABLET PO SCH (09:00)
[2019-09-16] MEDS: MONTELUKAST 10 MG TABLET PO SCH (09:00)
[2019-09-16] MEDS: SPIRONOLACTONE 50 MG TABLET PO SCH (09:00)
[2019-09-16] MEDS: ASPIRIN EC 81 MG TABLET PO SCH (09:01)
[2019-09-16] MEDS: ISOSORBIDE MONONITRATE 30 MG TABLET PO SCH (09:01)
[2019-09-16] MEDS: buPROPion 75 MG TABLET PO SCH (09:01)
[2019-09-16] MEDS: CLOPIDOGREL 75 MG TABLET PO SCH (09:01)
[2019-09-16] MEDS: PANTOPRAZOLE 40 MG TABLET PO SCH (09:01)
[2019-09-16] MEDS: MAGNESIUM CHLORIDE 64 MG TABLET PO SCH (09:01)
[2019-09-16] MEDS: LOSARTAN 50 MG TABLET PO SCH (09:01)
[2019-09-16] MEDS: DICLOFENAC 1.3% PATCH 5/PACK TRANSDERM SCH (09:02)
[2019-09-16] MEDS: THIAMINE 100 MG TABLET PO SCH (09:02)
[2019-09-16] MEDS: carvediloL 12.5 MG TABLET PO SCH (09:02)
[2019-09-16] MEDS: ASCORBIC ACID 500 MG TABLET PO SCH (09:02)
== END 2019-09-16 13:35 | disposition home or self-care (01) | DRG 190 ==
LOC: N.ED 00:28 → N.EDINP 03:55 → SUATTDRO 03:55 → N.TELEN 04:20
PROVIDERS: ADMIT Internal Medicine; ATTEND Internal Medicine

== ENCOUNTER 2019-10-10 02:29 | Inpatient (IN) ==
[2019-10-10 03:36] LABS: Basophils % 0.6 % (0.0-0.8); Eosinophils # 0.4 10*3/uL (0.0-0.87); Eosinophils % 5.5 % (0.00-10.9); Hemoglobin 14.9 GM/DL (14.0-18.0); Immature Granulocytes % 0.8 %; Immature Granulocytes Absolute 0.05 #; Lymphocytes # 2.1 10*3/uL (1.4-4.0); Lymphocytes % 32.6 % (21.2-54.2); Mean Corpuscular HGB Conc 33.9 GM/DL (32-36); Mean Corpuscular Volume 99.1 FL (87-102); Mean Platelet Volume 10.8 FL (9.6-12.0); Monocytes % 17.1 % (1.7-12.7); Neutrophils % 43.4 % (38.7-73.9); Platelet Count 172 T/CUMM (130-400); Red Blood Count 4.44 MC/CUMM (3.8-5.5); Red Cell Distribution Width 12.4 % (9.3-17.3); White Blood Count 6.4 T/CUMM (4-12)
[2019-10-10 03:41] LABS: PT Patient Result 10.7 SECS (9.6-12.2); Partial Thromboplastin Time 25.7 SECS (20.8-36.0)
[2019-10-10 03:49] LABS: Alanine Aminotransferase 36 U/L (16-61); Albumin 3.4 G/DL (3.4-5.0); Alkaline Phosphatase 71 U/L (45-117); Aspartate Amino Transferase 24 U/L (0-37); Bilirubin,Total < 0.39 MG/DL (0.2-1.0); Blood Urea Nitrogen 25 MG/DL (7-18); Calcium 8.9 MG/DL (8.5-10.1); Estimated Glom Filtration Rate 79 ML/MIN; Glucose 105 MG/DL (74-106); Osmolality,Calculated 276.8 MOS/KG (273-304); Total Protein 7.1 G/DL (6.4-8.3)
[2019-10-10] MEDS ORDERED: ENOXAPARIN 30 MG/0.3 ML SYRINGE SUBCUT STA (04:01)
[2019-10-10] MEDS ORDERED: MORPHINE 4 MG/1 ML VIAL IV PRN (04:36)
[2019-10-10] MEDS ORDERED: ONDANSETRON 4 MG/2 ML VIAL IV PRN (04:36)
[2019-10-10] MEDS ORDERED: GLUCAGON 1 MG VIAL IM PRN (04:36)
[2019-10-10] MEDS ORDERED: ENOXAPARIN 80 MG/0.8 ML SYRINGE SUBCUT ONE (04:56)
[2019-10-10 04:57] LABS: Eosinophils 4 % (0-10); Lymphocytes 45 % (20-55); Platelet Estimate Adequate; Segmented Neutrophils 33 % (50-85); Total Cells Counted 100
[2019-10-10 04:58] LABS: Atypical Lymphocytes Few
[2019-10-10] MEDS ORDERED: DEXTROSE 10% 250 ML BAG IV PRN (05:05)
[2019-10-10 05:47] LABS: Risk Ratio 2.98
[2019-10-10] MEDS: ENOXAPARIN 80 MG/0.8 ML SYRINGE SUBCUT SCH ×2 (06:38→16:33)
[2019-10-10] MEDS ORDERED: NITROGLYCERIN SL 0.4 MG TABLET SL PRN (07:03)
[2019-10-10 07:04] LABS: CKMB % 26.9 %
[2019-10-10 07:07] LABS: Troponin I 1.98 NG/ML (0.00-0.045)
[2019-10-10] MEDS ORDERED: FOLIC ACID 1 MG TABLET PO SCH (09:00)
[2019-10-10] MEDS: SPIRONOLACTONE 50 MG TABLET PO SCH (10:17)
[2019-10-10] MEDS: LOSARTAN 50 MG TABLET PO SCH (10:18)
[2019-10-10] MEDS: FOLIC ACID 0.4 MG TABLET PO SCH (10:18)
[2019-10-10] MEDS: ISOSORBIDE MONONITRATE 30 MG TABLET PO SCH (10:18)
[2019-10-10] MEDS: MONTELUKAST 10 MG TABLET PO SCH (10:18)
[2019-10-10] MEDS: buPROPion 75 MG TABLET PO SCH ×2 (10:18→21:13)
[2019-10-10] MEDS: CLOPIDOGREL 75 MG TABLET PO SCH (10:18)
[2019-10-10] MEDS: ASCORBIC ACID 500 MG TABLET PO SCH (10:18)
[2019-10-10] MEDS: carvediloL 12.5 MG TABLET PO SCH ×2 (10:19→21:13)
[2019-10-10] MEDS: PANTOPRAZOLE 40 MG TABLET PO SCH (10:19)
[2019-10-10] MEDS: MUPIROCIN 2% OINT 22 GM TUBE TOP SCH (10:19)
[2019-10-10] MEDS: NICOTINE 21 MG/24 HR PATCH TRANSDERM SCH (13:11)
[2019-10-10] MEDS: THIAMINE 200 MG/2 ML VIAL IV SCH (13:11)
[2019-10-10] MEDS: chlordiazePOXIDE 25 MG CAPSULE PO SCH ×3 (13:19→21:13)
[2019-10-10] MEDS ORDERED: chlordiazePOXIDE 25 MG CAPSULE PO SCH (15:00)
[2019-10-10] MEDS ORDERED: ATORVASTATIN 40 MG TABLET PO SCH (21:00)
[2019-10-11] MEDS: ENOXAPARIN 80 MG/0.8 ML SYRINGE SUBCUT SCH (05:10)
[2019-10-11 07:59] LABS: Basophils # 0.1 10*3/uL (0.0-0.2); Basophils % 0.7 % (0.0-0.8); Eosinophils # 0.4 10*3/uL (0.0-0.87); Eosinophils % 5.1 % (0.00-10.9); Hemoglobin 15.2 GM/DL (14.0-18.0); Immature Granulocytes % 0.3 %; Immature Granulocytes Absolute 0.02 #; Lymphocytes # 2.8 10*3/uL (1.4-4.0); Lymphocytes % 38.2 % (21.2-54.2); Mean Corpuscular HGB Conc 33.8 GM/DL (32-36); Mean Corpuscular Volume 98.9 FL (87-102); Mean Platelet Volume 10.8 FL (9.6-12.0); Monocytes % 14.5 % (1.7-12.7); Neutrophils % 41.2 % (38.7-73.9); Platelet Count 192 T/CUMM (130-400); Red Blood Count 4.55 MC/CUMM (3.8-5.5); Red Cell Distribution Width 12.4 % (9.3-17.3); White Blood Count 7.3 T/CUMM (4-12)
[2019-10-11 08:16] LABS: Calcium 8.5 MG/DL (8.5-10.1); Osmolality,Calculated 276.8 MOS/KG (273-304)
[2019-10-11] MEDS ORDERED: ASPIRIN EC 325 MG TABLET PO SCH (09:00)
[2019-10-11] MEDS ORDERED: MULTIVITAMIN (BEROCCA) TABLET PO SCH (09:00)
[2019-10-11] MEDS ORDERED: AMIODARONE 200 MG TABLET PO SCH (11:09)
[2019-10-11] MEDS: buPROPion 75 MG TABLET PO SCH (11:25)
[2019-10-11] MEDS: MONTELUKAST 10 MG TABLET PO SCH (11:25)
[2019-10-11] MEDS: SPIRONOLACTONE 50 MG TABLET PO SCH (11:25)
[2019-10-11] MEDS: chlordiazePOXIDE 25 MG CAPSULE PO SCH (11:25)
[2019-10-11] MEDS: ISOSORBIDE MONONITRATE 30 MG TABLET PO SCH (11:26)
[2019-10-11] MEDS: LOSARTAN 50 MG TABLET PO SCH (11:26)
[2019-10-11] MEDS: THIAMINE 200 MG/2 ML VIAL IV SCH (11:26)
[2019-10-11] MEDS: PANTOPRAZOLE 40 MG TABLET PO SCH (11:26)
[2019-10-11] MEDS: FOLIC ACID 0.4 MG TABLET PO SCH (11:26)
[2019-10-11] MEDS: carvediloL 12.5 MG TABLET PO SCH (11:26)
[2019-10-11] MEDS: MUPIROCIN 2% OINT 22 GM TUBE TOP SCH (11:29)
[2019-10-11] MEDS: NICOTINE 21 MG/24 HR PATCH TRANSDERM SCH (11:29)
[2019-10-11] MEDS ORDERED: chlordiazePOXIDE 25 MG CAPSULE PO PRN (11:35)
[2019-10-11] MEDS: ASCORBIC ACID 500 MG TABLET PO SCH (11:48)
[2019-10-11] MEDS: CLOPIDOGREL 75 MG TABLET PO SCH (11:48)
[2019-10-11 12:10] VITALS: BP 119/77
[2019-10-11] MEDS ORDERED: ASCORBIC ACID 500 MG TABLET PO SCH (21:00)
[2019-10-11] MEDS ORDERED: APIXABAN 5 MG TABLET PO SCH (21:00)
[2019-10-12] MEDS ORDERED: ASPIRIN EC 81 MG TABLET PO SCH (09:00)
== END 2019-10-11 16:11 | disposition home or self-care (01) | DRG 313 ==
LOC: EDBD → EDUNIT# → N.ED 02:29 → N.EDINP 02:29 → N.TELES 06:06
PROVIDERS: ADMIT Internal Medicine; ATTEND Internal Medicine

== ENCOUNTER 2020-05-28 13:45 | Observation (INO) ==
[2020-05-28] MEDS ORDERED: methylPREDNISolone SOD SUC 40 MG/1 ML VIAL IV STA (15:25)
[2020-05-28] MEDS ORDERED: ALBUTEROL 2.5 MG/3 ML NEB RESP TX STA (15:25)
[2020-05-28 15:59] LABS: Basophils # 0.1 10*3/uL (0.0-0.2); Hematocrit 44.6 VOL% (42.0-52.0); Immature Granulocytes % 0.2 %; Immature Granulocytes Absolute 0.02 #; Lymphocytes # 2.8 10*3/uL (1.4-4.0); Lymphocytes % 33.8 % (21.2-54.2); Mean Corpuscular HGB Conc 33.6 GM/DL (32-36); Mean Corpuscular Volume 104.7 FL (87-102); Mean Platelet Volume 12.1 FL (9.6-12.0); Monocytes % 11.7 % (1.7-12.7); Neutrophils % 53.3 % (38.7-73.9); Platelet Count 182 T/CUMM (130-400); Red Blood Count 4.26 MC/CUMM (3.8-5.5); White Blood Count 8.1 T/CUMM (4-12)
[2020-05-28 16:25] LABS: Calcium 9.5 MG/DL (8.5-10.1); Osmolality,Calculated 280.3 MOS/KG (273-304)
[2020-05-28 16:50] LABS: Platelet Estimate Adequate
[2020-05-28] MEDS ORDERED: ONDANSETRON 4 MG/2 ML VIAL IV PRN (17:01)
[2020-05-28] MEDS ORDERED: DEXTROSE 50% 25 GM/50 ML VIAL IV PRN (17:01)
[2020-05-28] MEDS ORDERED: ACETAMINOPHEN 325 MG TABLET PO PRN (17:01)
[2020-05-28] MEDS ORDERED: NICOTINE 21 MG/24 HR PATCH TRANSDERM PRN (17:01)
[2020-05-28] MEDS ORDERED: GLUCAGON 1 MG VIAL IM PRN (17:01)
[2020-05-28] MEDS ORDERED: SODIUM POLYSTYRENE SULFATE 15 GM/60 ML BOTTLE PO STA (17:44)
[2020-05-28] MEDS: LEVOFLOXACIN INJ 750 MG in PREMIX 1 EACH IV SCH (18:30)
[2020-05-28] MEDS: ALBUTEROL/IPRATROPIUM 3 ML NEB RESP TX SCH (20:00)
[2020-05-28] MEDS: BUDESONIDE/FORMOTEROL 160-4.5 INHALER 6 GM INH SCH (20:33)
[2020-05-28] MEDS: ATORVASTATIN 40 MG TABLET PO SCH (20:34)
[2020-05-28] MEDS: carvediloL 12.5 MG TABLET PO SCH (20:34)
[2020-05-28] MEDS: APIXABAN 5 MG TABLET PO SCH (20:35)
[2020-05-28] MEDS ORDERED: ENOXAPARIN 40 MG/0.4 ML SYRINGE SUBCUT SCH (21:00)
[2020-05-29] MEDS: methylPREDNISolone SOD SUC 40 MG/1 ML VIAL IV SCH ×4 (00:10→23:50)
[2020-05-29] MEDS: ALBUTEROL/IPRATROPIUM 3 ML NEB RESP TX SCH ×4 (00:50→19:45)
[2020-05-29 06:51] LABS: Basophils % 0.2 % (0.0-0.8); Hematocrit 41.6 VOL% (42.0-52.0); Hemoglobin 13.7 GM/DL (14.0-18.0); Immature Granulocytes % 0.4 %; Immature Granulocytes Absolute 0.03 #; Lymphocytes # 1.1 10*3/uL (1.4-4.0); Mean Corpuscular HGB Conc 32.9 GM/DL (32-36); Mean Corpuscular Volume 105.3 FL (87-102); Mean Platelet Volume 11.8 FL (9.6-12.0); Monocytes % 1.1 % (1.7-12.7); Neutrophils % 85.3 % (38.7-73.9); Platelet Count 190 T/CUMM (130-400); Red Blood Count 3.95 MC/CUMM (3.8-5.5); White Blood Count 8.2 T/CUMM (4-12)
[2020-05-29 07:26] LABS: Albumin 3.6 G/DL (3.4-5.0); Bilirubin,Total 1.8 MG/DL (0.2-1.0); Calcium 9.2 MG/DL (8.5-10.1); Osmolality,Calculated 284.1 MOS/KG (273-304); Risk Ratio 2.68; Thyroid Stimulating Hormone 1.87 uIU/ml (0.358-3.74); Total Protein 7.6 G/DL (6.4-8.3)
[2020-05-29 08:34] LABS: Calcium 9.5 MG/DL (8.5-10.1); Osmolality,Calculated 281.4 MOS/KG (273-304)
[2020-05-29] MEDS: BUDESONIDE/FORMOTEROL 160-4.5 INHALER 6 GM INH SCH ×2 (08:34→21:24)
[2020-05-29] MEDS: MONTELUKAST 10 MG TABLET PO SCH (08:35)
[2020-05-29] MEDS: APIXABAN 5 MG TABLET PO SCH ×2 (08:35→21:25)
[2020-05-29] MEDS: FUROSEMIDE 20 MG TABLET PO SCH (08:35)
[2020-05-29] MEDS: LOSARTAN 25 MG TABLET PO SCH (08:35)
[2020-05-29] MEDS: PANTOPRAZOLE 40 MG TABLET PO SCH (08:36)
[2020-05-29] MEDS: carvediloL 12.5 MG TABLET PO SCH ×2 (08:36→16:45)
[2020-05-29] MEDS: AMIODARONE 200 MG TABLET PO SCH (08:36)
[2020-05-29] MEDS: ISOSORBIDE MONONITRATE 30 MG TABLET PO SCH (08:36)
[2020-05-29] MEDS: ASPIRIN EC 81 MG TABLET PO SCH (08:36)
[2020-05-29] MEDS ORDERED: HYDROcodone/CHLORPHENIRAMINE ER 5 ML UDCUP PO PRN (10:10)
[2020-05-29] MEDS: BENZONATATE 100 MG CAPSULE PO SCH ×2 (11:06→21:25)
[2020-05-29] MEDS: LEVOFLOXACIN INJ 750 MG in PREMIX 1 EACH IV SCH (17:31)
[2020-05-29] MEDS: ATORVASTATIN 40 MG TABLET PO SCH (21:25)
[2020-05-30] MEDS: ALBUTEROL/IPRATROPIUM 3 ML NEB RESP TX SCH ×3 (00:28→13:17)
[2020-05-30 05:51] LABS: Basophils % 0.1 % (0.0-0.8); Hematocrit 39.7 VOL% (42.0-52.0); Hemoglobin 13.2 GM/DL (14.0-18.0); Immature Granulocytes % 0.8 %; Immature Granulocytes Absolute 0.12 #; Lymphocytes # 0.9 10*3/uL (1.4-4.0); Lymphocytes % 6.3 % (21.2-54.2); Mean Corpuscular HGB Conc 33.2 GM/DL (32-36); Mean Corpuscular Volume 103.7 FL (87-102); Mean Platelet Volume 11.4 FL (9.6-12.0); Monocytes % 4.4 % (1.7-12.7); Neutrophils % 88.4 % (38.7-73.9); Platelet Count 187 T/CUMM (130-400); Red Blood Count 3.83 MC/CUMM (3.8-5.5); White Blood Count 14.2 T/CUMM (4-12)
[2020-05-30 06:27] LABS: Albumin 3.3 G/DL (3.4-5.0); Bilirubin,Total 1.4 MG/DL (0.2-1.0); Osmolality,Calculated 287.1 MOS/KG (273-304); Total Protein 6.9 G/DL (6.4-8.3)
[2020-05-30] MEDS: BENZONATATE 100 MG CAPSULE PO SCH (08:21)
[2020-05-30] MEDS: MONTELUKAST 10 MG TABLET PO SCH (08:22)
[2020-05-30] MEDS: LOSARTAN 25 MG TABLET PO SCH (08:22)
[2020-05-30] MEDS: APIXABAN 5 MG TABLET PO SCH (08:22)
[2020-05-30] MEDS: PANTOPRAZOLE 40 MG TABLET PO SCH (08:22)
[2020-05-30] MEDS: ISOSORBIDE MONONITRATE 30 MG TABLET PO SCH (08:22)
[2020-05-30] MEDS: AMIODARONE 200 MG TABLET PO SCH (08:22)
[2020-05-30] MEDS: carvediloL 12.5 MG TABLET PO SCH (08:22)
[2020-05-30] MEDS: ASPIRIN EC 81 MG TABLET PO SCH (08:22)
[2020-05-30] MEDS: FUROSEMIDE 20 MG TABLET PO SCH (08:22)
[2020-05-30] MEDS: BUDESONIDE/FORMOTEROL 160-4.5 INHALER 6 GM INH SCH (08:25)
[2020-05-30] MEDS ORDERED: methylPREDNISolone SOD SUC 40 MG/1 ML VIAL IV SCH (09:00)
[2020-05-30 11:30] VITALS: BP 106/66
== END 2020-05-30 15:30 | disposition home or self-care (01) ==
LOC: N.ED 13:45 → N.EDINP 17:01 → INTOOBSV 17:01 → N.EDINP 17:40 → N.3E 18:06
PROVIDERS: ADMIT Internal Medicine; ATTEND Internal Medicine

== ENCOUNTER 2022-06-03 15:22 | Inpatient (IN) ==
[2022-06-03] MEDS ORDERED: INFLUENZA VIRUS VACCINE 0.5 ML SYRINGE IM ONE (16:43)
[2022-06-03] MEDS ORDERED: PNEUMOCOCCAL VACCINE (13 VALENT) 0.5 ML SYRINGE IM ONE (16:43)
[2022-06-03] MEDS ORDERED: GLUCAGON 1 MG VIAL IM PRN (16:56)
[2022-06-03] MEDS ORDERED: DOCUSATE SODIUM 100 MG CAPSULE PO PRN (16:56)
[2022-06-03] MEDS ORDERED: LACTULOSE 20 GM/30 ML UDCUP PO PRN (16:56)
[2022-06-03] MEDS ORDERED: DEXTROSE 10% 250 ML BAG IV PRN (16:56)
[2022-06-03] MEDS ORDERED: ACETAMINOPHEN 325 MG TABLET PO PRN (16:56)
[2022-06-03] MEDS ORDERED: ONDANSETRON 4 MG/2 ML VIAL IV PRN (16:56)
[2022-06-03] MEDS ORDERED: hydrALAZINE 20 MG/1 ML VIAL IV PRN (16:56)
[2022-06-03] MEDS ORDERED: NICOTINE 21 MG/24 HR PATCH TRANSDERM PRN (16:56)
[2022-06-03] MEDS ORDERED: methylPREDNISolone SOD SUC 40 MG/1 ML VIAL IV ONE (17:05)
[2022-06-03] MEDS ORDERED: ALBUTEROL 1.25 MG/3 ML NEB RESP TX PRN (17:13)
[2022-06-03 17:33] LABS: Arterial Base Excess iSTAT 5 MMOL/L (-2.5-2.5); Arterial Bicarbonate iSTAT 29.3 MMOL/L (20-26); Arterial O2 Saturation iSTAT 94 % (95-100); Arterial PCO2 iSTAT 40 MM HG (35-48); Arterial PO2 iSTAT 68 MM HG (80-95); Arterial Total CO2 iSTAT 30 MMO/L (23-27); Arterial pH iSTAT 7.472 (7.35-7.45)
[2022-06-03 17:57] LABS: Basophils % 0.1 % (0.0-0.8); Hematocrit 43.4 VOL% (42.0-52.0); Hemoglobin 14.9 GM/DL (14.0-18.0); Immature Granulocytes Absolute 0.11 #; Lymphocytes # 0.9 10*3/uL (1.4-4.0); Lymphocytes % 8.9 % (21.2-54.2); Mean Corpuscular HGB Conc 34.3 GM/DL (32-36); Mean Corpuscular Volume 102.6 FL (87-102); Mean Platelet Volume 11.2 FL (9.6-12.0); Monocytes # 0.6 10*3/uL (0.11-0.8); Monocytes % 5.6 % (1.7-12.7); Neutrophils % 84.4 % (38.7-73.9); Platelet Count 189 T/CUMM (130-400); Red Blood Count 4.23 MC/CUMM (3.8-5.5); Red Cell Distribution Width 13.8 % (9.3-17.3); White Blood Count 10.6 T/CUMM (4-12)
[2022-06-03] MEDS: cefTRIAXone 1,000 MG in SODIUM CHLORIDE 0.9% 100 ML IV SCH (18:11)
[2022-06-03 18:21] LABS: Albumin 3.5 G/DL (3.4-5.0); Bilirubin,Total 0.6 MG/DL (0.20-1.00); Calcium 8.7 MG/DL (8.5-10.1); Osmolality,Calculated 279.8 MOS/KG (273-304); Potassium 4.5 MMOL/L (3.5-5.1); Total Protein 7.2 G/DL (6.4-8.2)
[2022-06-03] MEDS ORDERED: NITROGLYCERIN SL 0.4 MG TABLET SL PRN (18:33)
[2022-06-03] MEDS: AZITHROMYCIN INJ 500 MG in SODIUM CHLORIDE 0.9% 250 ML IV SCH (19:18)
[2022-06-03] MEDS: ALBUTEROL/IPRATROPIUM 3 ML NEB RESP TX SCH ×2 (20:05→23:40)
[2022-06-03] MEDS: ARFORMOTEROL 15 MCG/2 ML NEB RESP TX SCH (20:13)
[2022-06-03] MEDS: BUDESONIDE 0.5 MG/2 ML NEB RESP TX SCH (20:13)
[2022-06-03] MEDS: guaiFENesin/DM ER 600-30 MG TABLET PO SCH (20:26)
[2022-06-03] MEDS: buPROPion SR 100 MG TABLET PO SCH (20:27)
[2022-06-03] MEDS: FUROSEMIDE 20 MG TABLET PO SCH (20:27)
[2022-06-03] MEDS: traZODone 50 MG TABLET PO PRN (20:27)
[2022-06-03] MEDS: ATORVASTATIN 40 MG TABLET PO SCH (20:27)
[2022-06-03] MEDS: APIXABAN 5 MG TABLET PO SCH (20:27)
[2022-06-03] MEDS ORDERED: ENOXAPARIN 40 MG/0.4 ML SYRINGE SUBCUT SCH (21:00)
[2022-06-04] MEDS: ALBUTEROL/IPRATROPIUM 3 ML NEB RESP TX SCH ×6 (05:21→23:03)
[2022-06-04 05:22] LABS: Basophils % 0.1 % (0.0-0.8); Hematocrit 41.2 VOL% (42.0-52.0); Immature Granulocytes % 1.2 %; Lymphocytes # 0.7 10*3/uL (1.4-4.0); Lymphocytes % 7.7 % (21.2-54.2); Mean Corpuscular Volume 103.5 FL (87-102); Mean Platelet Volume 11.1 FL (9.6-12.0); Monocytes # 0.2 10*3/uL (0.11-0.8); Monocytes % 1.8 % (1.7-12.7); Neutrophils % 89.2 % (38.7-73.9); Platelet Count 172 T/CUMM (130-400); Red Blood Count 3.98 MC/CUMM (3.8-5.5); Red Cell Distribution Width 13.5 % (9.3-17.3); White Blood Count 8.5 T/CUMM (4-12)
[2022-06-04 05:55] LABS: Calcium 8.7 MG/DL (8.5-10.1); Osmolality,Calculated 289.3 MOS/KG (273-304); Potassium 4.7 MMOL/L (3.5-5.1); Thyroid Stimulating Hormone 0.851 uIU/ml (0.358-3.74)
[2022-06-04] MEDS: BUDESONIDE 0.5 MG/2 ML NEB RESP TX SCH ×2 (07:09→19:20)
[2022-06-04] MEDS: ARFORMOTEROL 15 MCG/2 ML NEB RESP TX SCH ×2 (07:09→19:09)
[2022-06-04] MEDS ORDERED: ISOSORBIDE MONONITRATE 30 MG TABLET PO SCH (09:00)
[2022-06-04] MEDS: methylPREDNISolone SOD SUC 40 MG/1 ML VIAL IV SCH ×2 (09:17→20:13)
[2022-06-04] MEDS: PANTOPRAZOLE 40 MG TABLET PO SCH (09:18)
[2022-06-04] MEDS: ASCORBIC ACID 500 MG TABLET PO SCH (09:18)
[2022-06-04] MEDS: ASPIRIN EC 81 MG TABLET PO SCH (09:18)
[2022-06-04] MEDS: MONTELUKAST 10 MG TABLET PO SCH (09:19)
[2022-06-04] MEDS: FUROSEMIDE 20 MG TABLET PO SCH (09:19)
[2022-06-04] MEDS: LOSARTAN 25 MG TABLET PO SCH (09:19)
[2022-06-04] MEDS: guaiFENesin/DM ER 600-30 MG TABLET PO SCH ×2 (09:19→20:15)
[2022-06-04] MEDS: buPROPion SR 100 MG TABLET PO SCH ×2 (09:19→20:15)
[2022-06-04] MEDS: APIXABAN 5 MG TABLET PO SCH ×2 (09:19→20:15)
[2022-06-04] MEDS: MAGNESIUM CHLORIDE 64 MG TABLET PO SCH (09:20)
[2022-06-04] MEDS: FEXOFENADINE 180 MG TABLET PO SCH (09:20)
[2022-06-04] MEDS: FUROSEMIDE 40 MG TABLET PO SCH (16:55)
[2022-06-04] MEDS: cefTRIAXone 1,000 MG in SODIUM CHLORIDE 0.9% 100 ML IV SCH (17:53)
[2022-06-04] MEDS: ATORVASTATIN 40 MG TABLET PO SCH (20:15)
[2022-06-04] MEDS: traZODone 50 MG TABLET PO PRN (20:15)
[2022-06-04] MEDS: AZITHROMYCIN INJ 500 MG in SODIUM CHLORIDE 0.9% 250 ML IV SCH (20:17)
[2022-06-05] MEDS: ALBUTEROL/IPRATROPIUM 3 ML NEB RESP TX SCH ×5 (02:00→19:37)
[2022-06-05 05:49] LABS: Basophils % 0.1 % (0.0-0.8); Hematocrit 40.8 VOL% (42.0-52.0); Hemoglobin 13.7 GM/DL (14.0-18.0); Immature Granulocytes Absolute 0.18 #; Lymphocytes # 0.7 10*3/uL (1.4-4.0); Lymphocytes % 3.8 % (21.2-54.2); Mean Corpuscular HGB Conc 33.6 GM/DL (32-36); Mean Corpuscular Volume 104.1 FL (87-102); Mean Platelet Volume 11.2 FL (9.6-12.0); Monocytes # 0.5 10*3/uL (0.11-0.8); Monocytes % 2.9 % (1.7-12.7); Neutrophils % 92.2 % (38.7-73.9); Platelet Count 165 T/CUMM (130-400); Red Blood Count 3.92 MC/CUMM (3.8-5.5); Red Cell Distribution Width 13.7 % (9.3-17.3); White Blood Count 17.6 T/CUMM (4-12)
[2022-06-05 06:08] LABS: Calcium 8.7 MG/DL (8.5-10.1); Osmolality,Calculated 290.3 MOS/KG (273-304); Potassium 4.8 MMOL/L (3.5-5.1)
[2022-06-05 06:12] LABS: Lymphocytes 5 % (20-55); Total Cells Counted 100
[2022-06-05 06:13] LABS: Macrocytosis Slight
[2022-06-05] MEDS: ARFORMOTEROL 15 MCG/2 ML NEB RESP TX SCH ×2 (07:05→19:37)
[2022-06-05] MEDS: BUDESONIDE 0.5 MG/2 ML NEB RESP TX SCH ×2 (07:05→19:37)
[2022-06-05] MEDS: cefTRIAXone 1,000 MG in SODIUM CHLORIDE 0.9% 100 ML IV SCH (09:05)
[2022-06-05] MEDS: methylPREDNISolone SOD SUC 40 MG/1 ML VIAL IV SCH ×2 (09:05→21:59)
[2022-06-05] MEDS ORDERED: MORPHINE 2 MG/1 ML SYRINGE IV PRN (09:33)
[2022-06-05] MEDS ORDERED: ASPIRIN CHEW 81 MG TABLET PO ONE (09:33)
[2022-06-05] MEDS ORDERED: ASPIRIN 325 MG TABLET ONE (09:36)
[2022-06-05 10:00] LABS: Basophils % 0.2 % (0.0-0.8); Hematocrit 42.7 VOL% (42.0-52.0); Hemoglobin 14.5 GM/DL (14.0-18.0); Immature Granulocytes Absolute 0.21 #; Lymphocytes # 0.9 10*3/uL (1.4-4.0); Lymphocytes % 4.2 % (21.2-54.2); Mean Corpuscular Volume 104.1 FL (87-102); Mean Platelet Volume 10.8 FL (9.6-12.0); Monocytes # 1.1 10*3/uL (0.11-0.8); Monocytes % 5.3 % (1.7-12.7); Neutrophils % 89.3 % (38.7-73.9); Platelet Count 182 T/CUMM (130-400); Red Cell Distribution Width 13.8 % (9.3-17.3); White Blood Count 20.4 T/CUMM (4-12)
[2022-06-05 10:17] LABS: Alanine Aminotransferase 30 U/L (16-61); Albumin 3.3 G/DL (3.4-5.0); Alkaline Phosphatase 66 U/L (45-117); Aspartate Amino Transferase 21 U/L (0-37); Bilirubin,Total < 0.39 MG/DL (0.20-1.00); Blood Urea Nitrogen 37 MG/DL (7-18); Calcium 8.7 MG/DL (8.5-10.1); Carbon Dioxide 26 MMOL/L (21-32); Chloride 106 MMOL/L (98-107); Glucose 185 MG/DL (74-106); Osmolality,Calculated 288.7 MOS/KG (273-304); Potassium 4.3 MMOL/L (3.5-5.1); Sodium 138 MMOL/L (136-145); Total Protein 6.7 G/DL (6.4-8.2)
[2022-06-05 10:19] LABS: Lymphocytes 4 % (20-55); Total Cells Counted 100
[2022-06-05] MEDS: buPROPion SR 100 MG TABLET PO SCH (10:19)
[2022-06-05] MEDS: LOSARTAN 25 MG TABLET PO SCH (10:19)
[2022-06-05 10:20] LABS: Platelet Estimate Adequate
[2022-06-05] MEDS: APIXABAN 5 MG TABLET PO SCH ×2 (10:20→21:34)
[2022-06-05] MEDS: ASPIRIN EC 81 MG TABLET PO SCH (10:20)
[2022-06-05] MEDS: ASCORBIC ACID 500 MG TABLET PO SCH (10:20)
[2022-06-05] MEDS: guaiFENesin/DM ER 600-30 MG TABLET PO SCH ×2 (10:20→21:33)
[2022-06-05] MEDS: FEXOFENADINE 180 MG TABLET PO SCH (10:20)
[2022-06-05] MEDS: MONTELUKAST 10 MG TABLET PO SCH (10:20)
[2022-06-05] MEDS: PANTOPRAZOLE 40 MG TABLET PO SCH (10:20)
[2022-06-05] MEDS: FUROSEMIDE 40 MG TABLET PO SCH ×2 (10:20→16:31)
[2022-06-05] MEDS: MAGNESIUM CHLORIDE 64 MG TABLET PO SCH (10:21)
[2022-06-05] MEDS: SPIRONOLACTONE 50 MG TABLET PO SCH (12:32)
[2022-06-05] MEDS: AMIODARONE 200 MG TABLET PO SCH (12:32)
[2022-06-05] MEDS: carvediloL 12.5 MG TABLET PO SCH ×2 (12:33→21:33)
[2022-06-05 13:31] LABS: CKMB % 13.08 %
[2022-06-05 13:40] LABS: High Sensitive Troponin I* 442.2 ng/L (0-78)
[2022-06-05 15:50] LABS: CKMB % 15.65 %
[2022-06-05 15:52] LABS: High Sensitive Troponin I* 910.4 ng/L (0-78)
[2022-06-05] MEDS: buPROPion 100 MG TABLET PO SCH (21:33)
[2022-06-05] MEDS: BUDESONIDE/FORMOTEROL 160-4.5 INHALER 6 GM INH SCH (21:34)
[2022-06-05] MEDS: ATORVASTATIN 40 MG TABLET PO SCH (21:34)
[2022-06-05] MEDS: FAMOTIDINE 20 MG TABLET PO SCH (21:34)
[2022-06-05] MEDS: BENZONATATE 100 MG CAPSULE PO SCH (21:34)
[2022-06-05] MEDS: AZITHROMYCIN INJ 500 MG in SODIUM CHLORIDE 0.9% 250 ML IV SCH (23:32)
[2022-06-06] MEDS: ALBUTEROL/IPRATROPIUM 3 ML NEB RESP TX SCH ×7 (00:56→22:55)
[2022-06-06 05:10] LABS: Basophils % 0.1 % (0.0-0.8); Hematocrit 41.5 VOL% (42.0-52.0); Hemoglobin 13.9 GM/DL (14.0-18.0); Immature Granulocytes % 0.9 %; Immature Granulocytes Absolute 0.13 #; Lymphocytes # 0.7 10*3/uL (1.4-4.0); Lymphocytes % 4.7 % (21.2-54.2); Mean Corpuscular HGB Conc 33.5 GM/DL (32-36); Mean Corpuscular Volume 105.3 FL (87-102); Mean Platelet Volume 10.7 FL (9.6-12.0); Monocytes # 0.5 10*3/uL (0.11-0.8); Monocytes % 3.2 % (1.7-12.7); Neutrophils % 91.1 % (38.7-73.9); Platelet Count 159 T/CUMM (130-400); Red Blood Count 3.94 MC/CUMM (3.8-5.5); Red Cell Distribution Width 13.8 % (9.3-17.3); White Blood Count 15.1 T/CUMM (4-12)
[2022-06-06 05:34] LABS: Calcium 8.3 MG/DL (8.5-10.1); Osmolality,Calculated 293.1 MOS/KG (273-304); Potassium 4.3 MMOL/L (3.5-5.1)
[2022-06-06 06:54] LABS: Lymphocytes 6 % (20-55); Platelet Estimate Adequate; Total Cells Counted 100
[2022-06-06] MEDS: ARFORMOTEROL 15 MCG/2 ML NEB RESP TX SCH ×2 (07:15→23:23)
[2022-06-06] MEDS: BUDESONIDE 0.5 MG/2 ML NEB RESP TX SCH ×2 (07:15→19:48)
[2022-06-06] MEDS: BENZONATATE 100 MG CAPSULE PO SCH ×2 (08:52→20:29)
[2022-06-06] MEDS: FEXOFENADINE 180 MG TABLET PO SCH (08:52)
[2022-06-06] MEDS: APIXABAN 5 MG TABLET PO SCH ×2 (08:52→20:29)
[2022-06-06] MEDS: CHOLECALCIFEROL 5,000 UNIT TABLET PO SCH (08:53)
[2022-06-06] MEDS: CYANOCOBALAMIN 500 MCG TABLET PO SCH (08:53)
[2022-06-06] MEDS: FAMOTIDINE 20 MG TABLET PO SCH ×2 (08:53→20:31)
[2022-06-06] MEDS: MAGNESIUM CHLORIDE 64 MG TABLET PO SCH (08:54)
[2022-06-06] MEDS: FUROSEMIDE 40 MG TABLET PO SCH ×2 (08:54→16:14)
[2022-06-06] MEDS: SPIRONOLACTONE 50 MG TABLET PO SCH (08:54)
[2022-06-06] MEDS: guaiFENesin/DM ER 600-30 MG TABLET PO SCH ×2 (08:54→20:30)
[2022-06-06] MEDS: THIAMINE 100 MG TABLET PO SCH (08:54)
[2022-06-06] MEDS: MONTELUKAST 10 MG TABLET PO SCH (08:54)
[2022-06-06] MEDS: buPROPion 100 MG TABLET PO SCH ×2 (08:54→20:29)
[2022-06-06] MEDS: ASCORBIC ACID 500 MG TABLET PO SCH (08:54)
[2022-06-06] MEDS: LOSARTAN 25 MG TABLET PO SCH (08:54)
[2022-06-06] MEDS: carvediloL 12.5 MG TABLET PO SCH ×2 (08:55→20:30)
[2022-06-06] MEDS: ASPIRIN EC 81 MG TABLET PO SCH (08:55)
[2022-06-06] MEDS: PANTOPRAZOLE 40 MG TABLET PO SCH (08:55)
[2022-06-06] MEDS: FOLIC ACID 1 MG TABLET PO SCH (08:55)
[2022-06-06] MEDS: methylPREDNISolone SOD SUC 40 MG/1 ML VIAL IV SCH (08:55)
[2022-06-06] MEDS: AMIODARONE 200 MG TABLET PO SCH (08:55)
[2022-06-06] MEDS: cefTRIAXone 1,000 MG in SODIUM CHLORIDE 0.9% 100 ML IV SCH (08:56)
[2022-06-06] MEDS: BUDESONIDE/FORMOTEROL 160-4.5 INHALER 6 GM INH SCH ×2 (09:00→20:30)
[2022-06-06] MEDS: ATORVASTATIN 40 MG TABLET PO SCH (20:30)
[2022-06-06] MEDS: AZITHROMYCIN INJ 500 MG in SODIUM CHLORIDE 0.9% 250 ML IV SCH (20:30)
[2022-06-06] MEDS ORDERED: ZALEPLON 5 MG CAPSULE PO SCH (21:00)
[2022-06-07] MEDS: ALBUTEROL/IPRATROPIUM 3 ML NEB RESP TX SCH ×4 (03:18→15:00)
[2022-06-07 05:23] LABS: Basophils % 0.1 % (0.0-0.8); Hematocrit 41.7 VOL% (42.0-52.0); Hemoglobin 13.8 GM/DL (14.0-18.0); Immature Granulocytes % 0.8 %; Lymphocytes # 1.1 10*3/uL (1.4-4.0); Mean Corpuscular HGB Conc 33.1 GM/DL (32-36); Mean Corpuscular Volume 105.6 FL (87-102); Mean Platelet Volume 11.2 FL (9.6-12.0); Monocytes % 8.1 % (1.7-12.7); Platelet Count 155 T/CUMM (130-400); Red Blood Count 3.95 MC/CUMM (3.8-5.5); Red Cell Distribution Width 13.8 % (9.3-17.3); White Blood Count 12.6 T/CUMM (4-12)
[2022-06-07 05:46] LABS: Calcium 8.4 MG/DL (8.5-10.1); Osmolality,Calculated 291.3 MOS/KG (273-304); Potassium 4.2 MMOL/L (3.5-5.1)
[2022-06-07 05:55] LABS: Folate 15.86 NG/ML (5.38-24.0)
[2022-06-07] MEDS: ARFORMOTEROL 15 MCG/2 ML NEB RESP TX SCH (07:40)
[2022-06-07] MEDS: BUDESONIDE 0.5 MG/2 ML NEB RESP TX SCH (07:40)
[2022-06-07] MEDS ORDERED: predniSONE 20 MG TABLET PO SCH (09:00)
[2022-06-07] MEDS: SPIRONOLACTONE 50 MG TABLET PO SCH (09:11)
[2022-06-07] MEDS: APIXABAN 5 MG TABLET PO SCH (09:11)
[2022-06-07] MEDS: LOSARTAN 25 MG TABLET PO SCH (09:11)
[2022-06-07] MEDS: FOLIC ACID 1 MG TABLET PO SCH (09:11)
[2022-06-07] MEDS: FEXOFENADINE 180 MG TABLET PO SCH (09:11)
[2022-06-07] MEDS: CYANOCOBALAMIN 500 MCG TABLET PO SCH (09:12)
[2022-06-07] MEDS: CHOLECALCIFEROL 5,000 UNIT TABLET PO SCH (09:12)
[2022-06-07] MEDS: ASCORBIC ACID 500 MG TABLET PO SCH (09:12)
[2022-06-07] MEDS: MAGNESIUM CHLORIDE 64 MG TABLET PO SCH (09:13)
[2022-06-07] MEDS: guaiFENesin/DM ER 600-30 MG TABLET PO SCH (09:13)
[2022-06-07] MEDS: buPROPion 100 MG TABLET PO SCH (09:13)
[2022-06-07] MEDS: carvediloL 12.5 MG TABLET PO SCH (09:13)
[2022-06-07] MEDS: MONTELUKAST 10 MG TABLET PO SCH (09:13)
[2022-06-07] MEDS: FUROSEMIDE 40 MG TABLET PO SCH ×2 (09:13→17:48)
[2022-06-07] MEDS: ASPIRIN EC 81 MG TABLET PO SCH (09:13)
[2022-06-07] MEDS: AMIODARONE 200 MG TABLET PO SCH (09:13)
[2022-06-07] MEDS: PANTOPRAZOLE 40 MG TABLET PO SCH (09:13)
[2022-06-07] MEDS: BENZONATATE 100 MG CAPSULE PO SCH (09:13)
[2022-06-07] MEDS: FAMOTIDINE 20 MG TABLET PO SCH (09:14)
[2022-06-07] MEDS: THIAMINE 100 MG TABLET PO SCH (09:14)
[2022-06-07] MEDS: BUDESONIDE/FORMOTEROL 160-4.5 INHALER 6 GM INH SCH (09:15)
[2022-06-07] MEDS: cefTRIAXone 1,000 MG in SODIUM CHLORIDE 0.9% 100 ML IV SCH (09:43)
[2022-06-07 15:54] VITALS: BP 111/73
== END 2022-06-07 18:10 | disposition home or self-care (01) | DRG 190 ==
LOC: N.ED 15:22 → N.5E 15:22 → SUATTDRO 16:05 → UNDODISOB 16:06 → N.5E 16:52 → N.TELEN 06-05 10:01
PROVIDERS: ADMIT Internal Medicine; ATTEND Hospitalist